=== PATIENT | female | born 1960 | race Caucasian/White ===

== ENCOUNTER 2025-07-10 13:39 | Outpatient (AMB) | payer OTHER, SELFPAY ==
[2025-07-10 14:06] VITALS: BMI 26.3
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
--- OUTSIDE RECORDS SUMMARY | 2025-07-10 14:07 | XMS_ITS | Encounter Summary ---
Author Organization [facility] Address [address] [facility] [address] [place] [address] Phone Care Team Providers Care Business Information Analyst Name Role Phone Dimitris Lipscomb MD Unavailable Irena Ernst PA-C Unavailable Makeda Xavier MD Unavailable Ruby Carter MD Unavailable Gutierrez Patterson MD Unavailable Ruby Carter MD Primary Care Provider Kimberley Nicholson MD Primary Care Provider [phone] Arnol Blair DO Primary Care Provider Encounter Details Date Type Department Care Team (Late st Contact Info) Description 11/01/2018 Ancillary Orders Virtual Department [address] [place] [address] Barbara Alatorre, AMPARO [address] [place] [address] Left knee pain, unspecified chronicity Social History Tobacco Use Types Packs/Day Years Used Date Smoking Tobacco: Never Assessed Comments Unknown Sex and Gender Information Value Date Recorded Sex Assigned at Not on file Legal Sex Female 9:47 PM EDT Gender Identity Not on file Sexual Orientation Not on file documented as of this encounter Plan of Treatment Not on file documented as of this encounter Results * MRI KNEE WITHOUT CONTRAST (LEFT) (11/10/2018 8:17 AM EST) Anatomical Region Laterality Modality Knee Left Magnetic Resonan ce 11/10/2018 10:1 8 AM EST Impressions 11/10/2018 10:27 AM EST Mild medial tibial plateau central compression deformity with underlying marrow edema. Clinical and radiographic correlation recommended. Medial meniscal tear. Probable grade 2 MCL sprain. Medial soft tissue edema which could be post-traumatic or possibly related to popliteal cyst rupture. Small joint effusion. POS - [id number] Narrative 11/10/2018 10:27 AM EST TECHNIQUE: Exam performed on a 1.5 Riddhi high-field MRI scanner. Axial proton density with fat suppression, coronal proton density with fat suppression, sagittal T1, oblique sagittal proton density and proton density with fat suppression parallel to the plane of the ACL sequences were obtained. FINDINGS: Comparison is made with the prior radiographic study obtained at [facility] dated 01/08/2015. There is ill-defined linear opacity in the medial meniscus which appears to approximate the inferior articular surface near the apex of the posterior horn, suggesting tear. No displaced meniscal fragment identified. Lateral meniscus is intact. Cruciate ligaments and lateral collateral ligamentous complex are intact. There appears to be partial tearing of the medial collateral ligament which is undermined by fluid and is not completely disrupted. The popliteus, infrapatellar, and visualized portions of the distal quadriceps tendons are intact. A small joint effusion is present. There is a small popliteal cyst with adjacent fluid tracking in the soft tissues along the medial head of the gastrocnemius, raising the possibility of cyst rupture. There is prominent marrow edema within the medial tibial metaphysis with a probable mild compression deformity of the central plateau. No loose osteochondral fragment identified. Minimal marrow edema in the tibial spine near the ACL insertion point. Procedure Note Mecca Hernandez MD - 11/10/2018 TECHNIQUE: Exam performed on a 1.5 Riddhi high-field MRI scanner. Axialproton density with fat suppression, coronal proton density with fatsuppression, sagittal T1, oblique sagittal proton density and protondensity with fat suppression parallel to the plane of the ACL sequenceswere obtained. FINDINGS: Comparison is made with the prior radiographic study obtained at [facility] dated 01/08/2015. There is ill-defined linear opacity in the medial meniscus which appearsto approximate the inferior articular surface near the apex of theposterior horn, suggesting tear. No displaced meniscal fragmentidentified. Lateral meniscus is intact. Cruciate ligaments and lateral collateral ligamentous complex are intact.There appears to be partial tearing of the medial collateral ligamentwhich is undermined by fluid and is not completely disrupted. Thepopliteus, infrapatellar, and visualized portions of the distal quadricepstendons are intact. A small joint effusion is present. There is a small popliteal cyst withadjacent fluid tracking in the soft tissues along the medial head of thegastrocnemius, raising the possibility of cyst rupture. There isprominent marrow edema within the medial tibial metaphysis with a probablemild compression deformity of the central plateau. No loose osteochondralfragment identified. Minimal marrow edema in the tibial spine near theACL insertion point. IMPRESSION: Mild medial tibial plateau central compression deformity with underlyingmarrow edema. Clinical and radiographic correlation recommended. Medialmeniscal tear. Probable grade 2 MCL sprain. Medial soft tissue edemawhich could be post-traumatic or possibly related to popliteal cystrupture. Small joint effusion. POS - [id number] Barbara Alatorre FERTILIZER SUPERVISOR IMG MR EXTREMITY Final Re sult documented in this encounter Visit Diagnoses Diagnosis Left knee pain, unspecified chronicity Left knee pain, unspecified chronicity documented in this encounter Care Teams Business Information Analyst Relationship Specialty Start Date End Date Ruby Carter MD [address] [place] [address], [address] [place] [phone] [email or web address] PCP - General 11/08/17 05/21/19 Kimberley Nicholson MD [facility] [place] [address] [email or web address] PCP - General Family Medicine 05/22/19 05/09/23 Arnol Blair DO [address] [facility] [address] [place] [address] PCP - General Family Medicine 05/10/23 Dimitris Lipscomb MD [address] [facility], 2nd [place] [address] [email or web address] Historical LMR Provider 08/22/17 11/12/21 Irena Ernst PA-C [address] [place] [address] Orthopedics [facility] Medicine, [place] [address] [email or web address] Historical LMR Provider 08/22/17 11/12/21 Makeda Xavier MD [address] [place] [address] Orthopedics & Sports [facility], [place] [address] [email or web address] Historical LMR Provider 08/22/17 Ruby Carter MD [address] [facility] [address] [place] [address] [email or web address] Historical LMR Provider 08/22/17 2 Gutierrez Patterson MD [address] [place] [address] Historical LMR Provider 08/22/17 2 documented as of this encounter Additional Source Comments The information contained in this document represents components of the legal health record. It is not the complete legal health record.[facility]
--- OUTSIDE RECORDS SUMMARY | 2025-07-10 14:07 | XMS_ITS | Encounter Summary ---
Author Organization [facility] Address [address] [facility] [address] [place] [address] Phone Care Team Providers Care Precision Printing Worker Name Role Phone Kimberley Nicholson MD Primary Care Provider [phone] Arnol Blair DO Primary Care Provider [phone] Reason for Referral * MRI/CAT Scan - Closed Specialty Diagnoses / Procedures Referred By Ani harmon Referred To Contact Radiology Diagnoses Weakness Procedures MRI Thoracic Spine CHG MRI, DORSAL SPINE CHG MRI, DORSAL SPINE COMBO Yan Ren DO Phone: tel: fax: [email or web address] Referral ID Status Reason Start Date Expiration Date Visits Re quested Visits Authorized [id number] Closed 04/26/2022 06/25/2022 1 1 Encounter Details Date Type Department Care Team (Latest Contact Info) Description 04/10/2022 Transcribe Orders Virtual Department [address] [place] [address] Yan Ren DO [address] [place] [address] [email or web address] (Primary Dx) Social History Tobacco Use Types Packs/Day Years Used Date Smoking Tobacco: Never Smokeless Tobacco: Never Alcohol Use Standard Drinks/Week Comments Not Currently 0 (1 standard drink = 0.6 oz pur e alcohol) Comments Unknown Sex and Gender Information Value Date Recorded Sex Assigned at Not on file Legal Sex Female 9:47 PM EDT Gender Identity Not on file Sexual Orientation Not on file documented as of this encounter Plan of Treatment Not on file documented as of this encounter Results * MRI THORACIC SPINE (NEURO) WITH AND WITHOUT CONTRAST (05/01/2022 2:11 PM EDT) Anatomical Region Laterality Modality T-spine Magnetic Resonan ce 05/02/2022 12:1 3 PM EDT Impressions 05/02/2022 12:35 PM EDT 1.Small lower thoracic spinal cord syrinx extending from T10-11 to T12-L1, without evidence of obstructive etiology. 2.Degenerative changes of the spine without high-grade neural foraminal or spinal stenosis. Narrative 05/02/2022 12:35 PM EDT MRI THORACIC SPINE (NEURO) WITH AND WITHOUT CONTRAST TECHNIQUE: Multi-sequence, multi-planar MRI of the thoracic spine was performed with and without intravenous contrast. COMPARISON: None. FINDINGS: THORACIC SPINE: Alignment and Vertebrae: Normal alignment. No compression fracture. Marrow: Circumscribed focus of T1 hyperintensity within T11 representing a benign hemangioma. L1 superior endplate deformity. Discs and Endplates: Multilevel mild height loss with associated endplate irregularity/Schmorl's node formation. Multilevel posterior disc abnormalities representing small central protrusions and bulges, most prominently at T2-3 and T6-7 variably partially effacing the ventral CSF space, along with multilevel ligamentum flavum thickening. Resultant mild spinal canal stenosis at the T10-11 level with otherwise no significant spinal canal stenosis. No neural foraminal stenosis. Spinal Cord: No spinal cord compression or signal abnormality. Dilatation of the central canal measuring up to 3.6 mm in greatest diameter, extending cranially from the T10-11 level and caudally to the T12-L1 level. Contrast: No abnormal enhancement. Soft Tissue: No prevertebral edema. Other Findings: None. Procedure Note José Miguel Adam MD - 05/02/2022 MRI THORACIC SPINE (NEURO) WITH AND WITHOUT CONTRAST TECHNIQUE: Multi-sequence, multi-planar MRI of the thoracic spine was performed withand without intravenous contrast. COMPARISON: None. FINDINGS: THORACIC SPINE: Alignment and Vertebrae: Normal alignment. No compression fracture. Marrow: Circumscribed focus of T1 hyperintensity within T11 representing abenign hemangioma. L1 superior endplate deformity. Discs and Endplates: Multilevel mild height loss with associated endplateirregularity/Schmorl's node formation. Multilevel posterior discabnormalities representing small central protrusions and bulges, mostprominently at T2-3 and T6-7 variably partially effacing the ventral CSFspace, along with multilevel ligamentum flavum thickening. Resultant mildspinal canal stenosis at the T10-11 level with otherwise no significantspinal canal stenosis. No neural foraminal stenosis. Spinal Cord: No spinal cord compression or signal abnormality. Dilatationof the central canal measuring up to 3.6 mm in greatest diameter,extending cranially from the T10-11 level and caudally to the [id number]. Contrast: No abnormal enhancement. Soft Tissue: No prevertebral edema. Other Findings: None. IMPRESSION: 1.Small lower thoracic spinal cord syrinx extending from T10-11 to T12- L1,without evidence of obstructive etiology. 2.Degenerative changes of the spine without high-grade neural foraminal orspinal stenosis. Yan Ren DO IMG MR XSPECIALTY Final Resu lt documented in this encounter Visit Diagnoses Diagnosis Weakness- Primary Other malaise and fatigue Weakness Other malaise and fatigue documented in this encounter Care Teams Precision Printing Worker Relationship Specialty Start Date End Date Kimberley Nicholson MD [address] [place] [address] [email or web address] PCP - General Family Medicine 05/22/19 Arnol Blair DO [address] [address] PCP - General Family Medicine 05/10/23 documented as of this encounter Additional Source Comments The information contained in this document represents components of the legal health record. It is not the complete legal health record.[facility]
--- OUTSIDE RECORDS SUMMARY | 2025-07-10 14:07 | XMS_ITS | Encounter Summary ---
Author Organization [facility] Address [address] [facility] [address] [place] [address] Phone Care Team Providers Care Acoustical Material Worker Name Role Phone Kimberley Nicholson MD Primary Care Provider [phone] Arnol Blair DO Primary Care Provider [phone] Encounter Details Date Type Department Care Team ([facility] st Contact Info) Description 04/10/2022 Procedure Pass [facility], [address] [address] Social History Tobacco Use Types Packs/Day Years [...] on file documented as of this encounter Visit Diagnoses Not on filedocumented in this encounter Care Teams Acoustical Material Worker Relationship Specialty Start Date End Date Kimberley Nicholson MD [address] [place] [address] [email or web address] PCP - General Family Medicine 05/22/19 Arnol Blair DO [address] [id number] PCP - General Family Medicine 05/10/23 documented as of this encounter Additional Source Comments The information contained in this document represents components of the legal health record. It is not the complete legal health record.[facility]
--- OUTSIDE RECORDS SUMMARY | 2025-07-10 14:07 | XMS_ITS | Encounter Summary ---
Author Organization [facility] Address [address] [facility] [address] [place] [address] Phone Care Team Providers Care Yard Crane Operator Name Role Phone Dimitris Lipscomb MD Unavailable [phone] Irena Ernst PA-C Unavailable Makeda Xavier MD Unavailable [phone] Ruby Carter MD Unavailable Gutierrez Patterson MD Unavailable [phone] Kimberley Nicholson MD Primary Care Provider [phone] Arnol Blair DO Primary Care Provider [phone] Encounter Details Date Type Department Care Team (Late st Contact Info) Description 06/04/2019 Procedure Pass [facility] Admitting Dept Virtual Department [address] [place] [phone] Social History Tobacco Use Types Packs/Day Years [...] on filedocumented in this encounter Care Teams Yard Crane Operator Relationship Specialty Start Date End Date Kimberley Nicholson MD [address] [place] [address] [email or web address] PCP - General Family Medicine 05/22/19 05/09/23 Arnol Blair DO [address] [facility] [address] [place] [address] PCP - General Family Medicine 05/10/23 Dimitris Lipscomb MD [address] [facility], [address] [place] [address] [email or web address] Historical LMR Provider 08/22/17 11/12/21 Irena Ernst PA-C [address] [facility] Orthoped[facility] & [facility], [place] [address] [email or web address] Historical LMR Provider 08/22/17 11/12/21 Makeda Xavier MD 4 [facility] Orth[facility], [place] [address] [email or web address] Historical LMR Provider 08/22/17 Ruby Carter MD 38 [facility] [address] [place] [phone] [email or web address] Historical LMR Provider 08/22/17 2 Gutierrez Patterson MD [address] [place] [address] Historical LMR Provider 08/22/17 2 documented as of this encounter Additional Source Comments The information contained in this document represents components of the legal health record. It is not the complete legal health record.[facility]
--- OUTSIDE RECORDS SUMMARY | 2025-07-10 14:07 | XMS_ITS | Encounter Summary ---
Author Organization [facility] Address [address] [facility] [address] [place] [address] Phone Care Team Providers Care Drum Printer Name Role Phone Dimitris Lipscomb MD Unavailable [phone] Irena Ernst PA-C Unavailable [phone] Makeda Xavier MD Unavailable Ruby Carter MD Unavailable Gutierrez Patterson MD Unavailable Ruby Carter MD Primary Care Provider [phone] Kimberley Nicholson MD Primary Care Provider [phone] Arnol Blair DO Primary Care Provider Encounter Details Date Type Department Care Team (Late st Contact Info) Description 11/01/2018 Procedure Pass [facility], [address] [address] Social History Tobacco Use Types Packs/Day Years Used Date Smoking Tobacco: Never Assessed Comments Unknown Sex and Gender Information Value Date Recorded Sex Assigned at Not on file Legal Sex Female 9:47 PM EDT Gender Identity Not on file Sexual Orientation Not on file documented as of this encounter Last Filed Vital Signs Vital Sign Reading Time Taken Comments Blood Pressure - - Pulse - - Temperature - - Respiratory Rate - - Oxygen Saturation - - Inhaled Oxygen Concentration - - Weight 102.1 kg (225 lb) 11/03/2018 11:14 AM EST Height 162.6 cm (5' 4 ) 11/03/2018 11:14 AM EST Body Mass Index 38.62 11/03/2018 11:14 AM EST documented in this encounter Plan of Treatment Not on file documented as of this encounter Visit Diagnoses Not on filedocumented in this encounter Care Teams Drum Printer Relationship Specialty Start Date End Date Ruby Carter MD [address] [facility], [address] [place] [address] [email or web address] PCP - General 11/08/17 05/21/19 Kimberley Nicholson MD [address] [place] [address] [email or web address] PCP - General Family Medicine 05/22/19 05/09/23 Arnol Blair DO [address] [address] PCP - General Family Medicine 05/10/23 Dimitris Lipscomb MD 22 [facility], [address] [place] [address] [email or web address] Historical LMR Provider 08/22/17 11/12/21 Irena Ernst PA-C 4 [facility], [facility] [place] [address] Historical LMR Provider 08/22/17 11/12/21 Makeda Xavier MD [address] [place] [address] [facility] [place] [address] Historical LMR Provider 08/22/17 Ruby Carter MD [address] [facility], [address] [place] [address] [email or web address] Historical LMR Provider 08/22/17 2 Gutierrez Patterson MD [address] [place] [address] Historical LMR Provider 08/22/17 2 documented as of this encounter Additional Source Comments The information contained in this document represents components of the legal health record. It is not the complete legal health record.[facility]
--- OUTSIDE RECORDS SUMMARY | 2025-07-10 14:07 | XMS_ITS | Clinical Summary ---
Author Organization [email or web address] [facility] Address [address] [place] [address] Care Team Providers Care Rn Mds Coordinator Name Role Phone Unknown, Primary Care Provider Unavailabl e Social History Tobacco Use Types Packs/Day Years Used Date Smoking Tobacco: Never Assessed Sex and Gender Information Value Date Recorded Sex Assigned at Not on file Gender Identity Not on file Sexual Orientation Not on file Job Start Date Occupation Industry Not on file Not on file Not on file Plan of Treatment Health Maintenance Due Date Last Done Comments Hepatitis C Screening 1960 COVID-19 Vaccine (#1) 01/18/1962 Depression Screening 1973 Preventative Health Evaluation 1979 DTap / Tdap / Td (1 - Tdap) 1980 Cervical Cancer Screening (P ap Smear) 1982 Colon Cancer Screening (Colonoscopy) 2006 Breast Cancer Screening (Mammogram) 2011 Shingrix-Zoster Vaccine (1 of 2) 2011 Influenza Vaccine (#1) 2025 RSV Adult > 60+ Yrs or Pregn ant (1 - 1-dose 75+ series) 2036 Hepatitis B Vaccines Aged Out No long er eligible based on patient's age to complete this topic Pneumococcal Vaccine Aged Out No long er eligible based on patient's age to complete this topic RSV Ped < 20 months Aged Out No longe r eligible based on patient's age to complete this topic Care Teams Rn Mds Coordinator Relationship Specialty Start Date End Date Unknown, PCP - General 05/18/23
--- OUTSIDE RECORDS SUMMARY | 2025-07-10 14:09 | XMS_ITS | Encounter Summary ---
Author Organization [facility] Address [address] [facility] [address] [place] [address] Phone Care Team Providers Care Director Sales And Trade Marketing Name Role Phone Dimitris Lipscomb MD Unavailable Irena Ernst PA-C Unavailable Makeda Xavier MD Unavailable Ruby Carter MD Unavailable Gutierrez Patterson MD Unavailable Ruby Carter MD Primary Care Provider Kimberley Nicholson MD Primary Care Provider [phone] Arnol Blair DO Primary Care Provider Reason for Referral * Physical Therapy (Routine) - Closed Specialty Diagnoses / Procedures Referred By Ani harmon Referred To Contact Physical Therapy Diagnoses Encounter for rehabilitation System, Provider Not In, [facility] [id number] [place] [address] Phone: tel: Referral ID Status Reason Start Date Expiration Date Visits Re quested Visits Authorized [id number] Closed 07/01/2018 07/01/2019 10 10 Encounter Details Date Type Department Care Team (Latest Contact Info) Description 07/03/2018 Transcribe Orders [facility] [address] [place] [address] Ruby Carter MD 38 [facility] [address] [place] [phone] [email or web address] Encounter for rehabilitation (Primary Dx) Social History Tobacco Use Types Packs/Day Years Used Date Smoking Tobacco: Never Assessed Comments Unknown Sex and Gender Information Value Date Recorded Sex Assigned at Not on file Legal Sex Female 9:47 PM EDT Gender Identity Not on file Sexual Orientation Not on file documented as of this encounter Plan of Treatment Scheduled Referrals Name Type Priority Associated Diagnoses Orde r Schedule Ambulatory referral to [facility] Physical Therapy Outpatient Referral Routine Encounter for rehabilitation Ordered: 07/03/2018 documented as of this encounter Visit Diagnoses Diagnosis Encounter for rehabilitation- Primary documented in this encounter Care Teams Director Sales And Trade Marketing Relationship Specialty Start Date End Date Ruby Carter MD [address] [facility] [address] [place] [phone] [email or web address] PCP - General 11/08/17 05/21/19 [facility] [place] [address] [email or web address] PCP - General Family Medicine 05/22/19 05/09/23 Arnol Blair DO [address] [address] PCP - General Family Medicine 05/10/23 Dimitris Lipscomb MD [address] [place] [address], [address] [place] [address] [email or web address] Historical LMR Provider 08/22/17 11/12/21 Irena Ernst PA-C 4 [facility] [place] [address] [email or web address] Historical LMR Provider 08/22/17 11/12/21 Makeda Xavier MD 4 [facility], [place] [address] [email or web address] Historical LMR Provider 08/22/17 Ruby Carter MD [address] [place] [address] [address] [place] [address] [email or web address] Historical LMR Provider 08/22/17 2 Gutierrez Patterson MD [address] [place] [address] Historical LMR Provider 08/22/17 2 documented as of this encounter Additional Source Comments The information contained in this document represents components of the legal health record. It is not the complete legal health record.[facility]
--- OUTSIDE RECORDS SUMMARY | 2025-07-10 14:09 | XMS_ITS | Encounter Summary ---
Author Organization [facility] Address [address] [facility] [address] [place] [address] Phone Care Team Providers Care Gang Ripsaw Operator Name Role Phone Kimberley Nicholson MD Primary Care Provider [phone] Arnol Blair DO Primary Care Provider [phone] Reason for Referral * MRI/CAT Scan - Closed Specialty Diagnoses / Procedures Referred By Ani harmon Referred To Contact Radiology Diagnoses Lumbar radiculopathy Pain in the coccyx Procedures MRI Lumbar Spine CHG MRI, LUMBAR SPINE aYn Ren DO Phone: tel: fax: [email or web address] Referral ID Status Reason Start Date Expiration Date Visits Re quested Visits Authorized [id number] Closed 03/06/2022 09/02/2022 1 1 Encounter Details Date Type Department Care Team (Latest Contact Info) Description 03/14/2022 Transcribe Orders Virtual Department [address] [place], [place] [phone] Kimberley Nicholson MD [address] [place], [place] [phone] [email or web address] Lumbar radiculopathy (Primary Dx); Pain in the coccyx Social History Tobacco Use Types Packs/Day Years [...] as of this encounter Results * MRI LUMBAR SPINE (NEURO) WITHOUT CONTRAST (03/28/2022 6:41 PM EDT) Anatomical Region Laterality Modality L-spine Magnetic Resonan ce 03/28/2022 6:44 PM EDT Impressions 03/28/2022 6:54 PM EDT Multilevel facet and disc degenerative changes, notable for severe foraminal narrowing on the right at L5-S1, and for severe canal stenosis at L4-L5 and L5- S1. Prominence of the central canal of the visualized with spinal cord, additional imaging recommended for further evaluation. T2 hypointense focus in the upper pole of the right kidney, additional imaging recommended for further characterization. RECOMMENDATION: -Consider CT kidneys. -Consider MRI of the thoracic spine to evaluate spinal cord. Narrative 03/28/2022 6:54 PM EDT MRI LUMBAR SPINE (NEURO) WITHOUT CONTRAST TECHNIQUE: Multi-sequence, multi-planar MRI of the lumbar spine was performed without intravenous contrast. COMPARISON: None FINDINGS: LUMBAR SPINE: Alignment and Vertebrae: Dextroconvex curvature. Slight retrolisthesis at L4-L5. No acute fracture. Marrow: No concerning bone marrow replacing lesion. Hemangioma in the vertebral body of T11. Discs and Endplates: Multilevel T2 signal loss of the intervertebral discs with disc height loss at L3-L4, L4-L5 and L5-S1. Schmorl's nodes in the superior and inferior endplates of L1. Conus: Terminates at the level of L1. The visualized spinal cord demonstrates prominence of the central canal. Soft Tissues: Normal. Other Findings: Approximately 1.6 cm T2 hypointense focus along the upper pole of the right kidney (5:3). Findings by level: T12-L1: Small concentric disc bulge. No spinal or foraminal stenosis. L1-L2: Bilateral facet arthropathy. Concentric disc bulge. Mild canal stenosis. No foraminal stenosis. L2-L3: Bilateral facet arthropathy. Concentric disc bulge. Mild canal stenosis. No foraminal stenosis. L3-L4: Bilateral facet arthropathy. Concentric disc bulge. Mild canal stenosis. Mild left foraminal stenosis. L4-L5: Bilateral facet arthropathy. Ligamentum flavum thickening. Concentric disc bulge. Severe canal stenosis. Mild right and moderate left foraminal stenosis. L5-S1: Bilateral facet arthropathy. Ligamentum flavum thickening. Concentric disc bulge. Severe canal stenosis. Severe right and moderate left foraminal stenosis. Procedure Note Kris Rubio MD - 03/28/2022 MRI LUMBAR SPINE (NEURO) WITHOUT CONTRAST TECHNIQUE: Multi-sequence, multi-planar MRI of the lumbar spine wasperformed without intravenous contrast. COMPARISON: None FINDINGS: LUMBAR SPINE: Alignment and Vertebrae: Dextroconvex curvature. Slight retrolisthesis atL4-L5. No acute fracture. Marrow: No concerning bone marrow replacing lesion. Hemangioma in thevertebral body of T11. Discs and Endplates: Multilevel T2 signal loss of the intervertebral discswith disc height loss at L3-L4, L4-L5 and L5-S1. Schmorl's nodes in thesuperior and inferior endplates of L1. Conus: Terminates at the level of L1. The visualized spinal corddemonstrates prominence of the central canal. Soft Tissues: Normal. Other Findings: Approximately 1.6 cm T2 hypointense focus along the upperpole of the right kidney (5:3). Findings by level: T12-L1: Small concentric disc bulge. No spinal or foraminal stenosis. L1-L2: Bilateral facet arthropathy. Concentric disc bulge. Mild canalstenosis. No foraminal stenosis. L2-L3: Bilateral facet arthropathy. Concentric disc bulge. Mild canalstenosis. No foraminal stenosis. L3-L4: Bilateral facet arthropathy. Concentric disc bulge. Mild canalstenosis. Mild left foraminal stenosis. L4-L5: Bilateral facet arthropathy. Ligamentum flavum thickening.Concentric disc bulge. Severe canal stenosis. Mild right and moderate leftforaminal stenosis. L5-S1: Bilateral facet arthropathy. Ligamentum flavum thickening.Concentric disc bulge. Severe canal stenosis. Severe right and moderateleft foraminal stenosis. IMPRESSION: Multilevel facet and disc degenerative changes, notable for severeforaminal narrowing on the right at L5-S1, and for severe canal stenosisat L4-L5 and L5-S1. Prominence of the central canal of the visualized with spinal cord,additional imaging recommended for further evaluation. T2 hypointense focus in the upper pole of the right kidney, additionalimaging recommended for further characterization. RECOMMENDATION: -Consider CT kidneys. -Consider MRI of the thoracic spine to evaluate spinal cord. Yan Ren DO IMG MR XSPECIALTY Final Resu lt documented in this encounter Visit Diagnoses Diagnosis Lumbar radiculopathy- Primary Thoracic or lumbosacral neuritis or radiculitis, unspecified Pain in the coccyx Other disorder of coccyx Lumbar radiculopathy Thoracic or lumbosacral neuritis or radiculitis, unspecified Pain in the coccyx Other disorder of coccyx documented in this encounter Care Teams Gang Ripsaw Operator Relationship Specialty Start Date End Date Kimberley Nicholson MD [address] [place] [address] [email or web address] PCP - General Family Medicine 05/22/19 Arnol Blair DO [address] [address] PCP - General Family Medicine 05/10/23 documented as of this encounter Additional Source Comments The information contained in this document represents components of the legal health record. It is not the complete legal health record.[facility]
--- OUTSIDE RECORDS SUMMARY | 2025-07-10 14:09 | XMS_ITS | Clinical Summary ---
Author Organization [facility] Address [address] [facility] [address] [place] [address] Phone Care Team Providers Care Tower Equipment Repairer Name Role Phone Arnol Blair DO Primary Care Provider Allergies Active Allergy Reactions Criticality Noted Date Comments Miconazole 02/09/2022 Penicillins Other (See Comments) Medium 05/21/2019 Abdominal cramping Pollen Extracts Sneezing Medium 05/21/2019 Asthma like symptoms Mxjcesd-Miz-Rja Reductase Inhibitors 05/15/2023 Joint pain Sulfamethoxazole Unknown 02/14/2017 Medications ALBUTEROL SULFATE (PROAIR HFA INHL) 1 puff as needed. Active LAMOTRIGINE (LAMICTAL ORAL) 200 mg daily. Active Medication-Free Text Keppra 3000 mg Tablet, Si tablet Orally daily Active METHYLPHENIDATE HCL (CONCERTA ORAL) 36 mg daily. Active fluticasone propionate (FLOVENT HFA) 110 mcg/actuation inhalerIndicati ons:maintenance therapy for asthma Inhale 2 puffs into the lungs 2 (two) times a day. Indications: Controller Medication for Asthma Active clonazePAM (KLONOPIN) 1 MG tabletIndicatio ns:@ BT Take 1 mg by mouth daily. Indications: @ BT Active diclofenac sodium (VOLTAREN) 50 MG EC tablet TAKE ONE TABLET BY MOUTH THREE TIMES A DAY NEEDED 2 Active gabapentin (NEURONTIN) 600 MG tablet TAKE TWO TABLETS BY MOUTH EVERY DAY AT BEDTIME 2 Active levETIRAcetam (KEPPRA) 500 MG tablet TAKE THREE TABLETS BY MOUTH EVERY DAY AT BEDTIME 2 Active tiZANidine (ZANAFLEX) 2 MG tablet TAKE 1 TABLTE BY MOUTH THREE TIMES A DAY NEEDED 2 Active valACYclovir (VALTREX) 500 MG tablet TAKE ONE TABLET BY MOUTH TWICE A DAY FOR 3 DAYS NEEDED (START AT FIRST SIGN OF NEEDING) 2 Active VIIBRYD 40 mg Tab Take 40 mg by mouth daily. 2 Active acetaminophen (TYLENOL) 500 MG tablet Take 500 mg by mouth every 6 (six) hours as needed for pain (specific location in comments). Active levothyroxine (EUTHYROX) 50 MCG tablet Take by mouth. 2 Active Active Problems Problem Noted Date Diagnosed Date Primary osteoarthritis of left knee 02/09/2022 Status post right knee replacement 02/09/2022 Family History Medical History Relation Comments CV disease Father 2 CV disease Mother 2 Relation Status Comments Father 1 Father 2 Mother 1 Mother 2 Social History Tobacco Use Types Packs/Day Years Used Date Smoking Tobacco: Never Smokeless Tobacco: Never Tobacco Cessation:Counseling Given: Not Answered Alcohol Use Standard Drinks/Week Comments Not Currently 0 (1 standard drink = 0.6 oz pur e alcohol) Education Answer Date Recorded Are you interested in more education? Not on eve e 03/02/2023 Are you concerned about learning? Not on file 03/02/2023 No 03/02/2023 No 03/02/2023 Digital Access Answer Date Recorded No 03/31/2023 No 03/31/2023 Reliable internet access at home? Not on file 03/31/2023 Device with a working camera? Not on file Comments Unknown Sex and Gender Information Value Date Recorded Sex Assigned at Not on file Legal Sex Female 9:47 PM EDT Gender Identity Not on file Sexual Orientation Not on file Last Filed Vital Signs Vital Sign Reading Time Taken Comments Blood Pressure 118/60 06/04/2019 8:44 AM EDT Pulse 81 06/04/2019 7:29 AM EDT Temperature 36 C (96.8 F) 06/04/2019 7:29 AM EDT Respiratory Rate 18 06/04/2019 8:44 AM EDT Oxygen Saturation 96% 06/04/2019 8:44 AM EDT Inhaled Oxygen Concentration - - Weight 90.7 kg (200 lb) 05/15/2023 1:31 PM EDT Height 162.6 cm (5' 4 ) 05/15/2023 1:31 PM EDT Body Mass Index 34.33 05/15/2023 1:31 PM EDT Plan of Treatment Health Maintenance Due Date Last Done Comments LIPID PANEL 1961 TSH LEVEL 1961 DEPRESSION SCREENING 1973 HEPATITIS C SCREENING 1979 HIV ONE-TIME SCREENING (18-65 YEARS) 1979 PAP SMEAR 1982 SCREENING FOR DIABETES 1996 MAMMOGRAM 2001 COLOGUARD 2006 FIT TEST 2006 FOBT 2006 SIGMOIDOSCOPY 2006 VIRTUAL COLONOSCOPY 2006 PNEUMOCOCCAL VACCINES (50+ years) (3 of 3 - PCV20 or PCV21) 06/18/2024 06/18/2019, 09/20/2015 INFLUENZA VACCINE (#1) 2025 , 08/27/2020, 08/13/2019, Additional history exists COVID-19 VACCINE ( season) 2025 09/16/2021, 12/22/2020, 12/01/2020 COLONOSCOPY 06/04/2029 06/04/2019 COLORECTAL CANCER SCREENING 06/04/2029 Adult Td,Tdap Booster 12/07/2032 12/07/2022 , 09/10/2012, 07/30/2003 RSV VACCINE (1 - 1-dose 75+ series) 2036 ZOSTER VACCINES Completed 04/12/2022, 12/29/2021 SMOKING STATUS SCREENING (Once After 26 Yrs) Completed 05/15/2023 HEPATITIS A VACCINES Aged Out No long er eligible based on patient's age to complete this topic HIB VACCINES Aged Out No longer eligi ble based on patient's age to complete this topic MENINGOCOCCAL VACCINES (ACWY) Aged Out No longer eligible based on patient's age to complete this topic MENINGOCOCCAL VACCINES (B) Aged Out N o longer eligible based on patient's age to complete this topic Medical Devices Implanted Type Area Boiler Testing Technician Device Identifier Shelf Expiration Date Model / Serial / Lot Right Knee Procedures Procedure Name Priority Date/Time Associated Diagnosis Comments ENDOSCOPY, COLON 06/04/2019 7:32 AM EDT from Last 3 Months or Most Recently Relevant to Health Maintenance Results * ENDOSCOPY, COLON (06/04/2019 7:32 AM EDT) Narrative Transcriptions Mecca Hernandez MD - 06/04/2019 7:32 AM EDT Patient Name: Barbara Edward Attending MD:: MECCA HERNANDEZ MD Procedure Date: 06/04/2019 7:32 AM Date of : 1960 Age: 58 Admit Type: Outpatient Gender: Female Room: [place] [address] Referring MD: Kimberley Nicholson Exam Type: Colonoscopy Indications: Screening for colorectal malignant neoplasm, Last colonoscopy: January 2008 Medications: Propofol per Anesthesia Procedure: Informed consent was obtained from the patient after discussion of the indications, limitations,alternatives, benefits, and risks of the procedure. Risksspecifically discussed include but are not limited to medication reactions, missed lesions, bleeding, perforation, orthe need for emergent surgery. Throughout the procedure, the patient's blood pressure, pulse, end-tidal CO2, and oxygen saturations were monitored continuously. The Olympus adult variable colonoscope [id number] #1 was introduced through the anus and advanced to theterminal ileum, with identification of the appendiceal orificeand IC valve. The terminal ileum, ileocecal valve,appendiceal orifice, and rectum were photographed. The colonoscopywas performed without difficulty. The patient tolerated the procedure well. The quality of the bowel preparationwas good. The bowel preparation used was GoLYTELY. Complications: No immediate complications. Estimated blood loss:None. Findings: The digital rectal exam was normal. Pertinent negatives include no palpable rectal lesions. External hemorrhoids were found during perianal exam.The hemorrhoids were small. The retroflexed view of the distal rectum and analverge was normal and showed no anal or rectalabnormalities. Many small-mouthed diverticula were found in thesigmoid colon. The exam was otherwise without abnormality. The terminal ileum appeared normal. Retroflexion in the right colon was performed. Impression: - External hemorrhoids. - The distal rectum and anal verge are normal on retroflexion view. - Diverticulosis in the sigmoid colon. - The examination was otherwise normal. - The examined portion of the ileum was normal. - No specimens collected. Recommendation: - Repeat colonoscopy in 10 years for screeningpurposes. - Return to nurse practitioner. - High fiber diet. MECCA HERNANDEZ MD 06/04/2019 8:33:02 AM This report has been signed electronically. Number of Addenda: 0 Note Initiated On: 06/04/2019 7:32 AM Procedure Code(s): --- Professional --- 30402, Colonoscopy, flexible; diagnostic, including collection of specimen(s) by brushing or washing, when performed (separateprocedure) --- Technical --- 95461, Colonoscopy, flexible; diagnostic, including collection of specimen(s) by brushing or washing, when performed (separateprocedure) Diagnosis Code(s): --- Professional --- Z12.11, Encounter for screening for malignant neoplasm of colon K64.4, Residual hemorrhoidal skin tags K57.30, Diverticulosis of large intestine without perforation orabscess without bleeding --- Technical --- Z12.11, Encounter for screening for malignant neoplasm of colon K64.4, Residual hemorrhoidal skin tags K57.30, Diverticulosis of large intestine without perforation orabscess without bleeding CPT copyright 2016 [employer]. All rights reserved. The codes documented in this report are preliminary and upon hot saw operator reviewmay be revised to meet current compliance requirements. [address] [place] [address] Kimberley Nicholson MD GI PROCEDURE ORDERABLES F inal Result from Last 3 Months or Most Recently Relevant to Health Maintenance Insurance ACO ACO Care Teams Tower Equipment Repairer Relationship Specialty Start Date End Date [facility] [address] [address] PCP - General Family Medicine 05/10/23 Additional Source Comments The information contained in this document represents components of the legal health record. It is not the complete legal health record.[facility]
--- OUTSIDE RECORDS SUMMARY | 2025-07-10 14:09 | XMS_ITS | Encounter Summary ---
Author Organization [facility] Address [address] [place] [address] Phone Care Team Providers Care Servicer Name Role Phone Kimberley Nicholson MD Primary Care Provider + [phone] Arnol Blair DO Primary Care Provider + [phone] Encounter Details Date Type Department Care Team (Late st Contact Info) Description 02/03/2022 Ancillary Orders [facility],Outside Imaging [address] [place] [address] System, Provider [place] In, [place] [address] Social History Tobacco Use Types Packs/Day Years [...] documented as of this encounter Results * XR Lower Extremity Outside (No Interpretation) (12/27/2021 12:00 AM EST) Narrative SYSTEMGENERATED, DOCUMENTATION - 02/03/2022 4:50 PM EDT This study is for PACS storage only and not for interpretation. us Provider Not In System PhD IMG OUTSIDE IMAGING W /OUT INTERPRETATION Final Result documented in this encounter Visit Diagnoses Not on filedocumented in this encounter Care Teams Servicer Relationship Specialty Start Date End Date Kimberley Nicholson MD [address] [place] [address] [email or web address] PCP - General Family Medicine 05/22/19 Arnol Blair DO [address] [address] PCP - General Family Medicine 05/10/23 documented as of this encounter Additional Source Comments The information contained in this document represents components of the legal health record. It is not the complete legal health record.[facility]
--- OUTSIDE RECORDS SUMMARY | 2025-07-10 14:09 | XMS_ITS | Encounter Summary ---
Author Organization [facility] Address [address] [facility] [address] [place] [address] Phone Care Team Providers Care Freight Car Repairer Name Role Phone Kimberley Nicholson MD Primary Care Provider + [phone] Arnol Blair DO Primary Care Provider + [phone] Encounter Details Date Type Department Care Team (Latest Contact Info) Description 03/17/2022 Transcribe Orders Virtual Department [address] [place] [address] Yan Ren, [address] [place] [address] [email or web address] Sacrococcygeal disorders, not elsewhere classified (Primary Dx) Social History Tobacco Use Types [...] as of this encounter Results * XR PELVIS 1 VIEW (05/01/2022 12:43 PM EDT) Anatomical Region Laterality Modality Pelvis Computed Radiogr aphy 05/01/2022 3:30 PM EDT Impressions 05/01/2022 3:35 PM EDT No acute osseous abnormality demonstrated radiographically on single view Narrative 05/01/2022 3:35 PM EDT XR PELVIS 1 VIEW ONLY History: Pelvic pain with radiculopathy COMPARISON: MRI lumbar spine 03/28/2022 FINDINGS: No displaced fracture. Stool and bowel gas overlie the sacrum obscuring the field of view. Degenerative changes lower lumbar spine. Intact sacroiliac joints and pubic symphysis. Frontal evaluation of the hips demonstrates normal joint spaces. Procedure Note Miri Granados MD - 05/01/2022 XR PELVIS 1 VIEW ONLY History: Pelvic pain with radiculopathy COMPARISON: MRI lumbar spine 03/28/2022 FINDINGS: No displaced fracture. Stool and bowel gas overlie the sacrum obscuringthe field of view. Degenerative changes lower lumbar spine. Intactsacroiliac joints and pubic symphysis. Frontal evaluation of the hipsdemonstrates normal joint spaces. IMPRESSION: No acute osseous abnormality demonstrated radiographically on singleview Yan Ren DO IMG XR PELVIS Final Result documented in this encounter Visit Diagnoses Diagnosis Sacrococcygeal disorders, not elsewhere classified- Primary Sacrococcygeal disorders, not elsewhere classified documented in this encounter Care Teams Freight Car Repairer Relationship Specialty Start Date End Date Kimberley Nicholson MD [address] [place] [address] [email or web address] PCP - General Family Medicine 05/22/19 Arnol Blair DO [address] [address] PCP - General Family Medicine 05/10/23 documented as of this encounter Additional Source Comments The information contained in this document represents components of the legal health record. It is not the complete legal health record.[facility]
--- OUTSIDE RECORDS SUMMARY | 2025-07-10 14:09 | XMS_ITS | Encounter Summary ---
Author Organization [facility] Address [address] [facility] [address] [place] [address] Phone Care Team Providers Care Justice Court Judge Name Role Phone Kimberley Nicholson MD Primary Care Provider [phone] Arnol Blair DO Primary Care Provider + [phone] Encounter Details Date Type Department Care Team ([facility] st Contact Info) Description 03/14/2022 Procedure Pass [facility], [address] [address] Social History Tobacco Use Types Packs/Day Years [...] on filedocumented in this encounter Care Teams Justice Court Judge Relationship Specialty Start Date End Date Kimberley Nicholson MD [address] [place] [address] [email or web address] PCP - General Family Medicine 05/22/19 Arnol Blair DO [address] [id number] PCP - General Family Medicine 05/10/23 documented as of this encounter Additional Source Comments The information contained in this document represents components of the legal health record. It is not the complete legal health record.[facility]
== END 2025-07-10 16:15 | disposition home or self-care (01) ==
LOC: HO.HNS 13:40
PROVIDERS: PCP Family Medicine; Visit Provider Physician Assistant
DX: G95.0 Syringomyelia and syringobulbia (principal); M50.30 Other cervical disc degeneration, unspecified cervical region; M51.369 Other intervertebral disc degeneration, lumbar region without mention of lumbar back pain or lower extremity pain; M41.20 Other idiopathic scoliosis, site unspecified
CPT/HCPCS: 99205

== ENCOUNTER → 2025-07-10 13:39 | Outpatient (BNVA) | payer OTHER, SELFPAY | PROVIDERS: PCP Family Medicine; Visit Provider Physician Assistant | DX: G95.0 Syringomyelia and syringobulbia (principal); M50.30 Other cervical disc degeneration, unspecified cervical region; M51.369 Other intervertebral disc degeneration, lumbar region without mention of lumbar back pain or lower extremity pain; M41.20 Other idiopathic scoliosis, site unspecified | CPT/HCPCS: 99202 ==

== ENCOUNTER 2025-09-07 15:53 | Outpatient (REF) | payer OTHER, SELFPAY ==
--- NOTE | ~2025-09-07 | XR_ITS ---
Exam: 4 view lumbar spine. INDICATION: Scoliosis. COMPARISON: None TECHNIQUE: AP, and lateral: Flexion, neutral, and extension view x-rays of the lumbar spine. FINDINGS: There are 5 nonrib-bearing lumbar segments. There is 23 degrees dextroscoliosis with a mild rotational component. There is moderate superior endplate compression fracture of L1, likely chronic. L1-2: There is mild disc space narrowing with endplate sclerosis and osteophytes. There is minimal retrolisthesis that does not change during flexion and extension. L2-3: There is mild disc space narrowing and subtle retrolisthesis that does not change with flexion and extension. L3-4: There is moderate disc space narrowing with endplate sclerosis and osteophytes. There is also facet sclerosis. L4-5: There is moderate disc space narrowing with endplate sclerosis and osteophytes. There is also facet sclerosis and osteophytes. There is no instability with flexion-extension. L5-S1: There is moderate disc space narrowing with endplate sclerosis and osteophytes. There is also facet sclerosis and osteophytes. There is no instability with flexion-extension. XR/XR lumbar spine 4V min Impression: Moderate dextroscoliosis with a mild rotational component. Moderate degenerative disc disease and facet osteoarthritis without instability during flexion and extension. Moderate superior endplate compression fracture of L1, likely chronic. Electronically signed by: Michael Toro MD 09/07/2025 04:52 PM EST
--- NOTE | ~2025-09-07 | CT_ITS ---
EXAMINATION: CT LUMBAR SPINE WITHOUT CONTRAST CLINICAL INFORMATION: Scoliosis COMPARISON: None available. TECHNIQUE: Axial CT was performed from upper T12 through the mid sacrum. No contrast. Coronal and sagittal reformatted images were generated from the original axial data set. ALARA: The examination used one or more of the following radiation dose reduction techniques: Automated exposure control, iterative reconstruction, and/or adjustment of mA and/or KV. FINDINGS: There are 5 nonrib-bearing lumbar sequence segments. There is 23 degrees dextroscoliosis. There is a moderate chronic superior endplate compression fracture of L1. T12-L1: There is mild disc space narrowing. L1-L2: There is minimal grade 1 anterolisthesis with moderate disc space narrowing. There are facet osteophytes, left greater than right. There is circumferential broad-based disc bulge. There is mild right and moderate left foraminal narrowing. L2-L3: There is mild grade 1 anterolisthesis with mild disc space narrowing and endplate osteophytes. Facet degeneration is greater on the left than the right. There is broad-based disc bulge. There is mild to moderate right and moderate left foraminal narrowing. L3-L4: There is moderate disc space narrowing with endplate irregularity and osteophytes with subtle retrolisthesis and broad-based disc bulge. There is mild left foraminal narrowing without right-sided narrowing. L4-L5: There is mild loss of disc height with vacuum phenomenon and endplate irregularity. There is facet sclerosis and osteophytes. There is circumferential broad-based disc bulge. There is moderate to severe foraminal narrowing, right greater than left. There is moderate to severe spinal stenosis. L5-S1: There is moderate loss of disc height with degenerative endplate irregularity and vacuum phenomena. There are endplate osteophytes. There is moderate facet degeneration with osteophytes and sclerosis. There is circumferential broad-based disc bulge. There is probable moderate spinal stenosis. There is moderate right and mild left foraminal narrowing. CT/CT lumbar spine wo IV con IMPRESSION: Mild to moderate dextroscoliosis. Multilevel degenerative disc disease and facet osteoarthritis. L1-L2: There moderate left foraminal narrowing. L2-L3: There is mild to moderate right and moderate left foraminal narrowing. L4-L5: There is moderate to severe foraminal narrowing, right greater than left. There is moderate to severe spinal stenosis. L5-S1: There is probable moderate spinal stenosis and moderate right foraminal narrowing. Consider MRI for better characterization. Electronically signed by: Michael Toro MD 09/07/2025 05:27 PM WEND[facility]
--- NOTE | ~2025-09-07 | XR_ITS ---
EXAM: CR Xr Scoliosis Survey TECHNIQUE: AP and lateral views of the cervical, thoracic, and lumbar spine. There was stitching of the AP and lateral views. INDICATION: Scoliosis PRIOR: None FINDINGS: Sagittal balance: Neutral: The geometric center of the C7 vertebral body projects 1.5 cm anterior to the posterior margin of the superior endplate of S1. Coronal balance: Neutral. The geometric center of C7 projected 1.7 cm right of the center of S1. Curvature: Cervical: 10 degrees convex right. Thoracic: 12 degrees convex left Midthoracic: Degrees convex right thoracolumbar junction: 10 degrees convex left Lumbar: 23 degrees convex right. There is a mild rotational component. [place] Risser Stage: 5: Completely ossified iliac crest apophysis and closed physis. XR/XR scoliosis survey IMPRESSION: Moderate scoliosis is most pronounced in the lumbar spine. There is a neutral coronal and sagittal balance. Electronically signed by: Michael Toro MD 09/07/2025 04:47 PM [facility]
--- OUTSIDE RECORDS SUMMARY | 2025-09-07 16:57 | XMS_ITS | Encounter Summary ---
Author Organization [facility] Address [address] [facility] [address] [place] [address] Phone Care Team Providers Care State Superintendent Of Schools Name Role Phone Dimitris Lipscomb MD Unavailable [phone] Irena Ernst PA-C Unavailable Makeda Xavier MD Unavailable [phone] Ruby Carter MD Unavailable Gutierrez Patterson MD Unavailable [phone] Kimberley Nicholson MD Primary Care Provider [phone] Arnol Blair DO Primary Care Provider Encounter Details Date Type Department Care Team (Late st Contact Info) Description 06/04/2019 Procedure Pass [facility] Admitting Dept Virtual Department [address] [place] [address] [phone] Social History Tobacco Use Types Packs/Day Years [...] on filedocumented in this encounter Care Teams State Superintendent Of Schools Relationship Specialty Start Date End Date Kimberley Nicholson MD [address] [place] [address] [email or web address] PCP - General Family Medicine 05/22/19 05/09/23 Arnol Blair DO [address] [facility] [address] [place] [address] PCP - General Family Medicine 05/10/23 Dimitirs Lipscomb MD 22 [facility], 2nd [place] [address] [email or web address] Historical LMR Provider 08/22/17 11/12/21 Irena Ernst PA-C 4 [facility], [place] [address] [email or web address] Historical LMR Provider 08/22/17 11/12/21 Makeda Xavier MD 4 [facility], [place] [address] [email or web address] Historical LMR Provider 08/22/17 Ruby Carter MD 38 [facility] [address] [place] [phone] [email or web address] Historical LMR Provider 08/22/17 2 Gutierrez Patterson MD [address] [place] [address] Historical LMR Provider 08/22/17 2 documented as of this encounter Additional Source Comments The information contained in this document represents components of the legal health record. It is not the complete legal health record.[facility]
--- OUTSIDE RECORDS SUMMARY | 2025-09-07 16:57 | XMS_ITS | Encounter Summary ---
Author Organization [facility] Address [address] [facility] [address] [place] [address] Phone Care Team Providers Care Lasting Floorworker Name Role Phone Dimitris Lipscomb MD Unavailable Irena Ernst PA-C Unavailable Makeda Xavier MD Unavailable Ruby Carter MD Unavailable Gutierrez Patterson MD Unavailable Ruby Carter MD Primary Care Provider Kimberley Nicholson MD Primary Care Provider [phone] Arnol Blair DO Primary Care Provider [phone] Encounter Details Date Type Department Care Team (Late st Contact Info) Description 11/01/2018 Ancillary Orders Virtual Department 30 [place] [address] Barbara Alatorre, AMPARO [address] [place] [address] Left knee pain, unspecified chronicity Social History [...] cyst rupture. Small joint effusion. POS - [id number] Narrative 11/10/2018 10:27 AM EST TECHNIQUE: Exam performed on a 1.5 Riddhi high-field MRI scanner. Axial proton density with fat suppression, coronal proton density with fat suppression, sagittal T1, oblique sagittal proton density and proton density with fat suppression parallel to the plane of the ACL sequences were obtained. FINDINGS: Comparison is made with the prior radiographic study obtained at [facility] dated 01/08/2015. There is ill-defined linear [...] with the prior radiographic study obtained at [facility] dated 01/08/2015. There is ill-defined [...] popliteal cystrupture. Small joint effusion. POS - [id number] Barbara Alatorre MOVIE STAR IMG MR EXTREMITY Final Re sult documented in this encounter Visit Diagnoses Diagnosis Left knee pain, unspecified chronicity Left knee pain, unspecified chronicity documented in this encounter Care Teams Lasting Floorworker Relationship Specialty Start Date End Date Ruby Carter MD [address] [place] [address], [address] [place] [phone] [email or web address] PCP - General 11/08/17 05/21/19 Kimberley Nicholson MD [facility] [place] [address] [email or web address] PCP - General Family Medicine 05/22/19 05/09/23 Arnol Blair DO [address] [facility] [address] [place] [address] PCP - General Family Medicine 05/10/23 Dimitris Lipscomb MD 22 [facility], 2nd [place] [address] [email or web address] Historical LMR Provider 08/22/17 11/12/21 Irena Ernst PA-C [address] [place] [address] Orthopedics & Sports Medicine, [place] [address] [email or web address] Historical LMR Provider 08/22/17 11/12/21 Makeda Xavier MD [address] [place] [address] Orthoped[facility], [place] [address] [email or web address] Historical LMR Provider 08/22/17 Ruby Carter MD 38 [facility] [address] [place] [address] [email or web address] Historical LMR Provider 08/22/17 2 Gutierrez Patterson MD [address] [place] [address] Historical LMR Provider 08/22/17 2 documented as of this encounter Additional Source Comments The information contained in this document represents components of the legal health record. It is not the complete legal health record.[facility]
--- OUTSIDE RECORDS SUMMARY | 2025-09-07 16:57 | XMS_ITS | Encounter Summary ---
Author Organization [facility] Address [address] [facility] [address] [place] [address] Phone Care Team Providers Care Tenant Relations Coordinator Name Role Phone Kimberley Nicholson MD Primary Care Provider + [phone] Arnol Blair DO Primary Care Provider [phone] Reason for Referral * MRI/CAT Scan - Closed Specialty Diagnoses / Procedures Referred By Ani harmon Referred To Contact Radiology Diagnoses Weakness Procedures MRI Thoracic Spine CHG MRI, DORSAL SPINE CHG MRI, DORSAL SPINE COMBO Yan Ren DO Phone: tel: fax: [email or web address] Referral ID Status Reason Start Date Expiration Date Visits Re quested Visits Authorized [id number] Closed 04/26/2022 06/25/2022 1 1 Encounter Details Date Type Department Care Team (Latest Contact Info) Description 04/10/2022 Transcribe Orders Virtual Department 30 [place] [address] Yan Ren DO [address] [place] [address] [email or web address] Weakness (Primary Dx) Social History Tobacco Use [...] the T10-11 level and caudally to the [id number]. Contrast: No abnormal enhancement. Soft Tissue: No [...] fatigue documented in this encounter Care Teams Tenant Relations Coordinator Relationship Specialty Start Date End Date Kimberley Nicholson MD [address] [place] [address] [email or web address] PCP - General Family Medicine 05/22/19 Arnol Blair DO [address] [address] PCP - General Family Medicine 05/10/23 documented as of this encounter Additional Source Comments The information contained in this document represents components of the legal health record. It is not the complete legal health record.[facility]
--- OUTSIDE RECORDS SUMMARY | 2025-09-07 16:57 | XMS_ITS | Encounter Summary ---
Author Organization [facility] Address [address] [facility] [address] [place] [address] Phone Care Team Providers Care Generator Operator Straight Bevel Gear Name Role Phone Kimberley Nicholson MD Primary Care Provider + [phone] Arnol Blair DO Primary Care Provider + [phone] Encounter Details Date Type Department Care Team (Latest Contact Info) Description 03/17/2022 Transcribe Orders Virtual Department 30 [place] [address] Yan Ren, DO [address] [place] [address] [email or web address] Sacrococcygeal disorders, not elsewhere classified (Primary Dx) [...] classified documented in this encounter Care Teams Generator Operator Straight Bevel Gear Relationship Specialty Start Date End Date Kimberley Nicholson MD [address] [place] [address] [email or web address] PCP - General Family Medicine 05/22/19 Arnol Blair DO [address] [address] PCP - General Family Medicine 05/10/23 documented as of this encounter Additional Source Comments The information contained in this document represents components of the legal health record. It is not the complete legal health record.[facility]
--- OUTSIDE RECORDS SUMMARY | 2025-09-07 16:57 | XMS_ITS | Encounter Summary ---
Author Organization [facility] Address [address] [facility] [address] [place] [address] Phone Care Team Providers Care Onsite Health Coach Name Role Phone Kimberley Nicholson MD Primary Care Provider [phone] Arnol Blair DO Primary Care Provider + [phone] Encounter Details Date Type Department Care Team ([facility] st Contact Info) Description 04/10/2022 Procedure Pass [facility], [address] [address] Social History Tobacco Use Types Packs/Day Years [...] on filedocumented in this encounter Care Teams Onsite Health Coach Relationship Specialty Start Date End Date Kimberley Nicholson MD [address] [place] [address] [email or web address] PCP - General Family Medicine 05/22/19 Arnol Blair DO [address] [id number] PCP - General Family Medicine 05/10/23 documented as of this encounter Additional Source Comments The information contained in this document represents components of the legal health record. It is not the complete legal health record.[facility]
--- OUTSIDE RECORDS SUMMARY | 2025-09-07 16:57 | XMS_ITS | Encounter Summary ---
Author Organization [facility] Address [address] [facility] [address] [place] [address] Phone Care Team Providers Care Jack Tamp Operator Name Role Phone Kimberley Nicholson MD Primary Care Provider + [phone] Arnol Blair DO Primary Care Provider [phone] Reason for Referral * MRI/CAT Scan - Closed Specialty Diagnoses / Procedures Referred By Ani harmon Referred To Contact Radiology Diagnoses Lumbar radiculopathy Pain in the coccyx Procedures MRI Lumbar Spine CHG MRI, LUMBAR SPINE Yan Ren DO Phone: tel: fax: [email or web address] Referral ID Status Reason Start Date Expiration Date Visits Re quested Visits Authorized [id number] Closed 03/06/2022 09/02/2022 1 1 Encounter Details Date Type Department Care Team (Latest Contact Info) Description 03/14/2022 Transcribe Orders Virtual Department 30 [place], [place] [id number] Kimberley Nicholson MD [address] [place], [place] [id number] [email or web address] Lumbar radiculopathy (Primary Dx); Pain in the [...] coccyx documented in this encounter Care Teams Jack Tamp Operator Relationship Specialty Start Date End Date Kimberley Nicholson MD [address] [place] [address] [email or web address] PCP - General Family Medicine 05/22/19 Arnol Blair DO [address] [address] PCP - General Family Medicine 05/10/23 documented as of this encounter Additional Source Comments The information contained in this document represents components of the legal health record. It is not the complete legal health record.[facility]
--- OUTSIDE RECORDS SUMMARY | 2025-09-07 16:57 | XMS_ITS | Encounter Summary ---
Author Organization [facility] Address [address] [facility] [address] [place] [address] Phone Care Team Providers Care Director Technical Name Role Phone Dimitris Lipscomb MD Unavailable Irena Ernst PA-C Unavailable [phone] Makeda Xavier MD Unavailable Ruby Carter MD Unavailable Gutierrez Patterson MD Unavailable Ruby Carter MD Primary Care Provider [phone] Kimberley Nicholson MD Primary Care Provider [phone] Arnol Blair DO Primary Care Provider Encounter Details Date Type Department Care Team (Late st Contact Info) Description 11/01/2018 Procedure Pass [facility], [address] [address] Social History Tobacco Use Types Packs/Day Years [...] on filedocumented in this encounter Care Teams Director Technical Relationship Specialty Start Date End Date Ruby Carter MD 38 [facility], [address] [place] [address] [email or web address] PCP - General 11/08/17 05/21/19 Kimberley Nicholson MD [address] [place] [address] [email or web address] PCP - General Family Medicine 05/22/19 05/09/23 Arnol Blair DO [address] [address] PCP - General Family Medicine 05/10/23 Dimitris Lipscomb MD 22 [facility], [address] [place] [address] [email or web address] Historical LMR Provider 08/22/17 11/12/21 Irena Ernst PA-C 4 [facility] Medicine, [facility] [place] [address] Historical LMR Provider 08/22/17 11/12/21 Makeda Xavier MD [address] [place] [address] [facility] [place] [address] Historical LMR Provider 08/22/17 Ruby Carter MD 38 [facility], [address] [place] [address] [email or web address] Historical LMR Provider 08/22/17 2 Gutierrez Patterson MD [address] [place] [address] Historical LMR Provider 08/22/17 2 documented as of this encounter Additional Source Comments The information contained in this document represents components of the legal health record. It is not the complete legal health record.[facility]
--- OUTSIDE RECORDS SUMMARY | 2025-09-07 16:57 | XMS_ITS | Encounter Summary ---
Author Organization [facility] Address [address] [facility] [address] [place] [address] Phone Care Team Providers Care Laborer Adjustable Steel Joist Name Role Phone Kimberley Nicholson MD Primary Care Provider + [phone] Arnol Blair DO Primary Care Provider + [phone] Encounter Details Date Type Department Care Team (Late st Contact Info) Description 02/03/2022 Ancillary Orders [facility],Outside Imaging [address] [place] [address] System, Provider Not In, [place] [address] Social History Tobacco Use Types Packs/Day Years [...] on filedocumented in this encounter Care Teams Laborer Adjustable Steel Joist Relationship Specialty Start Date End Date Kimberley Nicholson MD [address] [place] [address] [email or web address] PCP - General Family Medicine 05/22/19 Arnol Blair DO [address] [address] PCP - General Family Medicine 05/10/23 documented as of this encounter Additional Source Comments The information contained in this document represents components of the legal health record. It is not the complete legal health record.[facility]
--- OUTSIDE RECORDS SUMMARY | 2025-09-07 16:57 | XMS_ITS | Encounter Summary ---
Author Organization [facility] Address [address] [facility] [address] [place] [address] Phone Care Team Providers Care Concentrator Operator Name Role Phone Kimberley Nicholson MD Primary Care Provider [phone] Arnol Blair DO Primary Care Provider + [phone] Encounter Details Date Type Department Care Team ([facility] st Contact Info) Description 03/14/2022 Procedure Pass [facility], [address] [address] Social History Tobacco Use Types Packs/Day Years [...] on filedocumented in this encounter Care Teams Concentrator Operator Relationship Specialty Start Date End Date Kimberley Nicholson MD [address] [place] [address] [email or web address] PCP - General Family Medicine 05/22/19 Arnol Blair DO [address] [id number] PCP - General Family Medicine 05/10/23 documented as of this encounter Additional Source Comments The information contained in this document represents components of the legal health record. It is not the complete legal health record.[facility]
--- OUTSIDE RECORDS SUMMARY | 2025-09-07 16:57 | XMS_ITS | Clinical Summary ---
Author Organization [facility] Address [address] [place] [address] Care Team Providers Care Complaint Investigations Officer Name Role Phone Unknown, Primary Care Provider [...] of 2) 2011 Influenza Vaccine (#1) 2025 Pneumococcal Vaccine (1 of 1 - PCV) 2026 RSV Adult > 60+ Yrs or Pregn [...] age to complete this topic Care Teams Complaint Investigations Officer Relationship Specialty Start Date End Date Unknown, PCP - General 05/18/23
--- OUTSIDE RECORDS SUMMARY | 2025-09-07 16:57 | XMS_ITS | Encounter Summary ---
Author Organization [facility] Address [address] [place] [phone] Phone Care Team Providers Care Vice President Mission Integration Name Role Phone Dimitris Lipscomb MD Unavailable Irena Ernst PA-C Unavailable Makeda Xavier MD Unavailable Ruby Carter MD Unavailable Gutierrez Patterson MD Unavailable Ruby Carter MD Primary Care Provider Kimberley Nicholson MD Primary Care Provider [phone] Arnol Blair DO Primary Care Provider Reason for Referral * Physical Therapy (Routine) - Closed Specialty Diagnoses / Procedures Referred By Ani harmon Referred To Contact Physical Therapy Diagnoses Encounter for rehabilitation System, Provider Not In, [facility] [id number] [place] [address] Phone: tel: Referral ID Status Reason Start Date Expiration Date Visits Re quested Visits Authorized [id number] Closed 07/01/2018 07/01/2019 10 10 Encounter Details Date Type Department Care Team (Latest Contact Info) Description 07/03/2018 Transcribe Orders [facility] [address] [place] [phone] Ruby Carter MD 38 [facility] [address] [place] [phone] [email or web address] Encounter for rehabilitation (Primary Dx) Social History [...] Diagnoses Orde r Schedule Ambulatory referral to [facility] Physical Therapy Outpatient Referral Routine Encounter for rehabilitation Ordered: 07/03/2018 documented as of this encounter Visit Diagnoses Diagnosis Encounter for rehabilitation- Primary documented in this encounter Care Teams Vice President Mission Integration Relationship Specialty Start Date End Date Ruby Carter MD 38 [facility] [address] [place] [phone] [email or web address] PCP - General 11/08/17 05/21/19 Kimberley Nicholson [facility] [place] [address] [email or web address] PCP - General Family Medicine 05/22/19 05/09/23 Arnol Blair DO [address] [address] PCP - General Family Medicine 05/10/23 Dimitris Lipscomb MD [address] [place] [address], [address] [place] [address] [email or web address] Historical LMR Provider 08/22/17 11/12/21 Irena Ernst PA-C 4 [facility] [place] [address] [email or web address] Historical LMR Provider 08/22/17 11/12/21 Makeda Xavier MD 4 [facility], [place] [address] [email or web address] Historical LMR Provider 08/22/17 Ruby Carter MD [address] [place] [address] [address] [place] [phone] [email or web address] Historical LMR Provider 08/22/17 2 Gutierrez Patterson MD [address] [place] [address] Historical LMR Provider 08/22/17 2 documented as of this encounter Additional Source Comments The information contained in this document represents components of the legal health record. It is not the complete legal health record.[facility]
--- OUTSIDE RECORDS SUMMARY | 2025-09-07 16:57 | XMS_ITS | Clinical Summary ---
Author Organization [facility] Address [address] [facility] [address] [place] [phone] Phone Care Team Providers Care Utilities Ground Worker Name Role Phone Arnol Blair DO Primary Care Provider Allergies Active Allergy Reactions Criticality Noted Date Comments Miconazole 02/09/2022 Penicillins Other (See Comments) Medium 05/21/2019 Abdominal cramping Pollen Extracts Sneezing Medium 05/21/2019 Asthma like symptoms Quhghso-Glc-Qsi Reductase Inhibitors 05/15/2023 Joint pain Sulfamethoxazole Unknown [...] this topic Medical Devices Implanted Type Area Manager Energy Device Identifier Shelf Expiration Date Model / [...] 57 Admit Type: Outpatient Gender: Female Room: [place] [address] Referring MD: Kimberley Nicholson Exam Type: Colonoscopy [...] monitored continuously. The Olympus adult variable colonoscope [id number] #1 was introduced through the anus and [...] 7:32 AM Procedure Code(s): --- Professional --- 71449, Colonoscopy, flexible; diagnostic, including collection of specimen(s) by brushing or washing, when performed (separateprocedure) --- Technical --- 27381, Colonoscopy, flexible; diagnostic, including collection of specimen(s) [...] perforation orabscess without bleeding CPT copyright 2016 [employer]. All rights reserved. The codes documented in this report are preliminary and upon configuration release manager reviewmay be revised to meet current compliance requirements. [address] [place] [address] Kimberley Nicholson MD GI PROCEDURE ORDERABLES F inal Result from Last 3 Months or Most Recently Relevant to Health Maintenance Insurance ACO ACO Care Teams Utilities Ground Worker Relationship Specialty Start Date End Date [facility] [address] [address] PCP - General Family Medicine 05/10/23 Additional Source Comments The information contained in this document represents components of the legal health record. It is not the complete legal health record.[facility]
--- OUTSIDE RECORDS SUMMARY | 2025-09-07 16:57 | XMS_ITS | Data Portability ---
Author Organization [facility] Cisco Meyer [facility], [facility] Address [address] [place] [address] Care Team Providers [employer] Tester Name Role Phone FLASH ROCHA Primary Care Provider Assessment Encounter Date Assessment Date Assessment LastModified by Organization Details LastModified Time 11/13/2024 11/13/2024 PRIMARY DIAGNOSIS: Osteoarthritis of the left knee. REASON FOR ADMISSION: The patient is being admitted for a left total knee arthroplasty by Dr. Burciaga on 11/20/2024. HISTORY OF PRESENT ILLNESS: Ms. Edward is a very pleasant 64-year-old patient with complaints of left-sided knee pain. The patient reports the pain is severe and worse with activity. She has been falling frequently because of this pain and injuring other parts of her body. The patient reports the pain is severe and worse with activity, it has gotten to the point where it is affecting her ability to perform activities of daily living as well as daily social tasks. She has tried and failed conservative management and she is now ready to pursue a left total knee by Dr. Burciaga on 11/20/2024. PAST MEDICAL HISTORY: 1. Osteoarthritis of the left knee. She is status post right total knee replacement at [facility] in 2014. 2. Obesity with a BMI of 32.3. 3. Trigger finger of the right hand. 4. Bipolar, which she reports she is more depressed but has been under control. She reports feeling tired lately. Her in May. She has difficulty eating. Denies any suicidal ideations or homicidal ideations. She reports she is well maintained on Keppra and Lamictal. 5. Diverticulosis. 6. Atypical chest pain, but none recently. 7. Fibromyalgia, well maintained on Effexor. 8. HSV. 9. Hypothyroidism. 10. Mild persistent asthma. 11. Hyperlipidemia. 12. Obstructive sleep apnea, where the patient wears a CPAP at night with the settings of 9. 13. Spinal stenosis from L4-L5. 14. History of renal mass, status post biopsy in 2021 where she is followed by Urology. 15. Benign mammary dysplasias. 16. Medial derangement of the meniscus. PAST SURGICAL HISTORY: 1. Hysterectomy. 2. Breast reduction. 3. Tonsillectomy. 4. Knee replacement in 2014 at [facility]. 5. Epidermal nevus removal. 6. Bilateral salpingo-oophorect fatmata. MEDICATIONS: Current list of medications includes: 1. 1 mg she of clonazepam. She uses half of a tab 2 times a day as needed. 2. Concerta 36 mg, she uses daily. 3. Euthyrox 50 mcg daily. 4. Zetia 10 mg daily. 5. Lamictal 100 mg daily. 6. Keppra 1000 mg, she uses 3 tablets daily. 7. Melatonin 5 mg at bedtime. 8. ProAir as needed for shortness of breath, which she reports she has not used in quite some time. 9. Symbicort 160/4.5 mcg 2 puffs twice a day. 10. Valacyclovir 500 mg as needed for outbreak. 11. Venlafaxine 37.5 mg daily. ALLERGIES: MICONAZOLE CAUSES A RASH. PENICILLIN CAUSES A RASH AND ABDOMINAL CRAMPING. STATIN CAUSES BONE PAIN. SOCIAL HISTORY: She denies any alcohol, tobacco or illicit drug use. She is . PHYSICIANS: The patient's primary care physician is Dr. Flash Rocha. REVIEW OF SYSTEMS: The patient's 12-point review of systems is negative with the exception of HPI. She does endorse frequent falls and some current left arm pain for which she thinks she injured her rotator cuff during her last fall, but is able to use the walker. PHYSICAL EXAMINATION: VITAL SIGNS: Weight is 183 pounds. GENERAL: Alert and oriented with normal insight, affect, and grooming. The patient appears to have a tic. HEENT: Normocephalic. Conjunctivae pink. Sclerae are anicteric. NECK: Supple. Trachea midline. CHEST: Lungs are clear to auscultation bilaterally and breathing is unlabored. CARDIOVASCULAR: Heart has a regular rate and rhythm with normal S1, S2. No murmurs, rubs or gallops appreciated. ABDOMEN: Soft, nontender with normal bowel sounds. EXTREMITIES: Lower extremities: The patient has negative straight leg raise test bilaterally. Bilateral hips with full range of motion without pain. Left knee skin is intact without erythema, induration, or ecchymosis. Range of motion is 0-125. Knee is stable to varus/valgus loading. Calves are supple and nontender. Ankle motion is satisfactory. Pedal pulses palpable bilaterally and skin about the feet is intact. PREOPERATIVE DIAGNOSTIC DATA: Orthopedic x-rays demonstrate end-stage osteoarthritis of the left knee. There is vxen-cg-kzit articulation, subchondral sclerosis and osteophyte formation. EKG reads normal sinus rhythm with a nonspecific ST-T wave abnormality at 74 beats per minute. LABORATORY DATA: Within normal limits. ASSESSMENT AND PLAN: The patient has advanced osteoarthritis of the left knee and is now scheduled for left total knee arthroplasty by Dr. Burciaga on 11/20/2024. She was seen by the med consult program, who considered the patient a low pulmonary and cardiovascular risk for surgery. She will receive IV TXA and be placed on aspirin postoperatively for DVT prophylaxis. We will order a CPAP and monitor her on O2 overnight. Discharge plans will be to home with services. The patient is not a candidate for same day discharge as she has a history of frequent falls. She has been counseled regarding the risks and benefits of proposed procedure. Her questions have been answered and she acknowledges understanding. The patient wishes to proceed with surgery. CONTACTS: Her son, Pipo, with a phone number [phone]. [email or web address] Not available 11/14/2024 12:16:24 12/30/2024 12/30/2024 Imaging: Imaging ordered, independently reviewed and interpreted by Cesar Burciaga MD reveals the following findings: XR Knee Left Knee: Three views of the knee were obtained including AP, sunrise, and lateral views. Status post total knee arthroplasty. No evidence of complication, well fixed, well aligned. There is no evidence of loosening or migration. There is no evidence of osteolysis. No fractures are present. Alignment: Neutral Impression: Status post left total knee arthro-plasty, 6 weeks out Plan: The patient is doing well, continue activities as tolerated. Follow up with repeat radiographs in one year, or sooner if problems arise. [email or web address] Not available 12/30/2024 13:55:35 04/13/2025 04/13/2025 I am seeing the patient today under the supervision of Dr. Carpenter who was available but who did not see the patient. HPI: The patient is a 64-year-old female presenting today for evaluation of left knee pain. Is approximately 5 months status post left total knee arthroplasty performed by Dr. Burciaga. She had recently sustained a fall directly onto the anterior knee a few weeks ago. Since then she has been dealing with anterior knee pain with some radiation medially. She denies any feelings of instability. She has been able to walk on it and it feels like it is getting somewhat better. She is using an btvo-xze-kltrgyd topical medication called Penetrex and feels as if this is helping. PMH/PSH/MEDS/ALL/F MH/SOC HX/ROS all reviewed in detail per my medical intake sheet. ROS: the patient denies fevers or chills Exam: Vitals signs as noted. Alert and oriented x3. Appears well and in no acute distress. Extremities: Incision is well-healed. Calves are soft and nontender. No evidence of DVT. No lower extremity edema. Neurovascular status at baseline. Left knee: Moderate tenderness to palpation about the inferior pole of the patella and some radiation medially. Range of motion is 0-120. Ligaments are stable to varus and valgus stresses. No significant effusion. Quad strength is 5/5. X-rays were ordered, obtained and reviewed NEOS. 3 views of the left knee demonstrate a total joint arthroplasty with good interfaces and alignment. No evidence of any lysis or loosening. No acute fractures appreciated. No change with previous radiographs. Assessment: The patient is approximately 5 months s/p TKA. Anterior knee contusion Plan: I explained the nature of the diagnosis with the patient and its treatment options both conservative and surgical. Recommended continued use of topical medications. I did offer the patient Voltaren gel if she would like on top of what she has been using. She would like to continue with her current treatment regimen and give the knee more time. I also discussed the potential for a knee brace to allow for some comfort or reduction of symptoms however the patient is okay moving forward with close observation and rest. She will follow-up on an as-needed basis otherwise. The patient understands and agrees with the plan. They know to call if they have any further questions or concerns regarding their symptoms, or to follow up sooner if needed. [email or web address] Not available 04/14/2025 06:12:54 Plan of Treatment Reminders Order Date Submit Date Provider Last Modified By Organization Details Last Modified Time Details Appointments None recorded. Lab None recorded. Referral None recorded. Procedures None recorded. Surgeries None recorded. Imaging XR, knee, 3 view - LTKR patient fell having pain room 219 2024 025 [email or web address] [facility], [address], [address], [place], [address], 5 13:52:28 XR, knee, 3 view - room 320 1 p/o ltkr (ab) 2024 025 [email or web address] [facility], [address], [address], [place], [address], 5 11:18:55 Medication Orders clindamycin HCl 300 mg capsule [email or web address] [place] [address] Pharmacy # 27, [address] [facility], [place], [address], 5 11:51:06 doxycycline hyclate 100 mg tablet 2024 025 [facility], [address] [place], [address], 5 13:32:43 tramadol 50 mg tablet 2024 025 [facility], [address] [place], [address], 5 13:32:55 Celebrex 200 mg capsule 2024 025 [facility], [address] [place], [address], 5 13:32:33 Tylenol 8 Hour 650 mg tablet,exte nded release 2024 025 [facility], [address] [facility], [place], [address], 13:33:31 Patient TargetsNo targets recorded. Patient InstructionsNo instructions recorded. Reason for Referral None Reported. Results Created Date Observation Date Name Description Value Unit Range Abnormal Flag Note LastModifiedBy Organization Detail LastModifiedTime 12/15/1912/15/2024 CBC WITH DIFFE RENTI AL/PL ATELE T WBC 6.4 K/mm3 4.0-11 .0 normal Not Available [address], [address], 12/15/2024 15:23:00 12/15/1912/15/2024 CBC WITH DIFFE RENTI AL/PL ATELE T RBC 4.44 M/mm3 4.20-5 .40 normal Not Available [address], [address], 12/15/2024 15:23:00 12/15/19 25 12/15/2024 CBC WITH DIFFE RENTI AL/PL ATELE T hemoglobin 13.2 gm/dL 11.7-1 5.5 normal Not Available [address], [address], 12/15/2024 15:23:00 12/15/19 25 12/15/2024 CBC WITH DIFFE RENTI AL/PL ATELE T hematocrit 40.6 % 35.7-4 5.8 normal Not Available [address], [address], 12/15/2024 15:23:00 12/15/19 25 12/15/2024 CBC WITH DIFFE RENTI AL/PL ATELE T MCV 91.4 fL 80.0-1 00.0 normal Not Available [address], [address], 12/15/2024 15:23:00 12/15/19 25 12/15/2024 CBC WITH DIFFE RENTI AL/PL ATELE T MCH 29.7 pg 27.0-3 4.0 normal Not Available [address], [address], 12/15/2024 15:23:00 12/15/19 25 12/15/2024 CBC WITH DIFFE RENTI AL/PL ATELE T MCHC 32.5 g/dL 33.0-3 7.0 below low normal Not Available [address], [address], 12/15/2024 15:23:00 12/15/19 25 12/15/2024 CBC WITH DIFFE RENTI AL/PL ATELE T RDW 45.2 fL <47.0 Not Available [address], [address], 12/15/2024 15:23:00 12/15/19 25 12/15/2024 CBC WITH DIFFE RENTI AL/PL ATELE T platelets 393 K/mm3 150-46 0 normal Not Available [address], [address], 12/15/2024 15:23:00 12/15/19 25 12/15/2024 CBC WITH DIFFE RENTI AL/PL ATELE T neutrophils 65.9 % 44-76 normal Not Available [address], [address], 12/15/2024 15:23:00 12/15/19 25 12/15/2024 CBC WITH DIFFE RENTI AL/PL ATELE T lymphs 21.8 % 15-43 normal Not Available [address], [address], 12/15/2024 15:23:00 12/15/19 25 12/15/2024 CBC WITH DIFFE RENTI AL/PL ATELE T monocytes 8.3 % 4.5-10 .5 normal Not Available [address], [address], 12/15/2024 15:23:00 12/15/19 25 12/15/2024 CBC WITH DIFFE RENTI AL/PL ATELE T eos 2.4 % 0-6 normal Not Available [address], [address], 12/15/2024 15:23:00 12/15/19 25 12/15/2024 CBC WITH DIFFE RENTI AL/PL ATELE T basos 0.8 % 0-2 normal Not Available [address], [address], 12/15/2024 15:23:00 12/15/19 25 12/15/2024 CBC WITH DIFFE RENTI AL/PL ATELE T neutrophils (absolute) 4.2 K/mm3 1.3-7. 0 normal Not Available [address], [address], 12/15/2024 15:23:00 12/15/19 25 12/15/2024 CBC WITH DIFFE RENTI AL/PL ATELE T lymphs (absolute) 1.4 K/mm3 0.8-3. 1 normal Not Available [address], [address], 12/15/2024 15:23:00 12/15/19 25 12/15/2024 CBC WITH DIFFE RENTI AL/PL ATELE T monocytes(ab solute) 0.5 K/mm3 0.4-0. 9 normal Not Available [address], [address], 12/15/2024 15:23:00 12/15/19 25 12/15/2024 CBC WITH DIFFE RENTI AL/PL ATELE T eos (absolute) 0.2 K/mm3 0.0-0. 4 normal Not Available [address], [address], 12/15/2024 15:23:00 12/15/19 25 12/15/2024 CBC WITH DIFFE RENTI AL/PL ATELE T baso (absolute) 0.1 K/mm3 0.0-0. 1 normal Not Available [address], [address], 12/15/2024 15:23:00 12/15/19 25 12/15/2024 CBC WITH DIFFE RENTI AL/PL ATELE T immature granulocytes 0.8 % Not Available [address], [address], 12/15/2024 15:23:00 12/15/19 25 12/15/2024 CBC WITH DIFFE RENTI AL/PL ATELE T immature grans (abs) 0.1 K/mm3 Not Available [address], [address], 12/15/2024 15:23:00 12/15/19 25 12/15/2024 CBC WITH DIFFE RENTI AL/PL ATELE T NRBC 0.0 #/100 _WBC' s Not Available [address], [address], 12/15/2024 15:23:00 12/15/19 25 12/15/2024 CBC WITH DIFFE RENTI AL/PL ATELE T hematology comments: Commen t AUTOM ATED DIFFE RENTI AL MPV 9.3 FL 9.4-1 2.4 L ABS. NRBC 0.0 K/MM3 N Not Available [address], [address], 12/15/2024 15:23:00 12/15/19 25 12/15/2024 SEDIM ENTAT ION RATE- WESTE RGREN sedimentatio n rate-westerg trae 17 mm/HR 0-20 normal Not Available [address], [address], 12/15/2024 15:23:01 12/15/19 25 12/15/2024 C-PEYMAN CTIVE PROTE IN, QUANT C-reactive protein, quant 4.2 mg/dL 0-0.5 above high normal Not Available [facility] [address], [place], [address], 12/15/2024 15:23:03 12/04/19 25 12/04/2024 XR, knee, 3 view [email or web address] ?Encry pted=s hAaTro YD8dLq bEUv6g %2BXZw aYqtaq 0bqfl% 2Fg9IQ a4ajBk vP9nXo QUaueC m3YtLR FvZlgJ JJ8mAn HZtai3 1t2311 AC0Kqb HyMUqW gKiQtr MwF INTERFACE [facility] [address], [place], [address], 12/04/2024 12:07:27 12/04/19 25 12/04/2024 XR, knee, 3 view [email or web address] ?Encry pted=s hAaTro YD8dLq bEUv6g %2BXZw aYqtaq 0bqfl% 2Fg9IQ a4ajBk vP9nXo QUaueC m3YtLR FvZlgJ JJ8mAn HZtai3 5f3187 AC0Kqb HyMUqW gKiQtr MwF INTERFACE [facility] [address], [place], [address], 12/04/2024 12:07:29 04/13/20 25 04/13/2025 XR, knee, 3 view [email or web address] ?Encry pted=s hAaTro YD8dLq bEUv6g %2BXZw aYqtaq 0bqfl% 2Fg9IQ a4ajBk vP9nXo QUaueC m3YtLR FvZlgJ JJ8mAn HZtai3 5m4435 AC0Kla HyCV6O hKiQtr MwF INTERFACE [facility] [address], [place], [address], 04/13/2025 14:49:58 04/13/20 25 04/13/2025 XR, knee, 3 view [email or web address] ?Encry pted=s hAaTro YD8dLq bEUv6g %2BXZw aYqtaq 0bqfl% 2Fg9IQ a4ajBk vP9nXo QUaueC m3YtLR FvZlgJ JJ8mAn HZtai3 2h2110 AC0Kla HyCV6O hKiQtr MwF INTERFACE [facility] [address] [address], [place], [address], 04/13/2025 14:50:00 Result Notes Documentation Provider Name and Address Organization Details Recorded Time Xr, Knee, 3 View : [email or web address] Encrypted=rzLlLpzMB5bSrvE Uv6g%2WJWycNkiml9uats%2Fg 0JAq5eoNnaO4bCiGYmbgCf7Ih JJKaAlsNAS7hMpLQkcb07e900 3HW2PuhWqZBrRcYxTmdIuQ Not Available [facility] 12/04/2024 12:07: 28 Xr, Knee, 3 View : [email or web address] Encrypted=dxCvWxuFW6cVepY Uv6g%5MNLlmSdtxq1cquu%2Fg 9KMg3abLhhU0cNjNKipgFs3Ia FWVjChhYZF5rXsIYucf59i736 8YI5UviVhLUuPgVxIgfVyK Not Available [facility] 12/04/2024 12:07: 30 Xr, Knee, 3 View : [email or web address] Encrypted=kdRtQviEO7uGafS Uv6g%5ZGQjhUtbme2upvk%2Fg 6ZHw8ulKwfW8tRiEXtseGf6Xq VAIoXclZKO7yWvPNkbu38g030 0NB2YmeAeGH9KvEsPhyWkB Not Available [facility] 04/13/2025 14:49: 59 Xr, Knee, 3 View : [email or web address] Encrypted=fvPrGgrIU5bBdiX Uv6g%6TPEzmRwioe2myag%2Fg 3CGw1krHwtT9vImQQbiaCx1Zl MCLyVsmBWI8gQnPJwem61i195 9FM8PsoQoYC9HiOaGawWbS Not Available [facility] 04/13/2025 14:50: 00 Problems Name Problem SNOMED Code Status Onset Date Resolution Date Notes Provider Name and Address Organization Details Recorded Time Pain of left knee joint 0672414710398 07 Active 2023 KAYLIA L'HEUREUX [facility] 4 14:43:58 Osteoarthr itis of left knee joint 6920083972366 09 Active 2023 Cesar Burciaga MD [address], [place], [address] , [facility] 4 12:43:48 History of total knee arthroplas ty 7153611483619 Active 2024 Cesar Burciaga MD [address], [place], [address] , [facility] 5 13:55:33 Problem Notes None recorded. Procedures Surgical History Date Name Laterality Status Provider Name and Address Organization Details Recorded Time 5 Knee Surgery completed KAYLIA L'HEUREUX [facility] 04/13/2025 14:39:08 5 Orthopedic Surgery completed KAYLIA L'HEUREUX [facility] 04/13/2025 14:39:08 Imaging Results None recorded. Procedure Notes None recorded. Medical Equipment None Reported. Allergies Allergen ID Allergen Name Allergen Category Reaction Reaction Severity Criticality Documentation Date Start Date Code Code System Note Provider Name and Address Organization Details Recorded Time 426400 oxycodone medicatio n Not available Not available Not available 12/30/2024 7804 RxNorm SHOSHANA SANDRITA polk [place] - [facility] 13:34:45 59794 Product containin g penicilli n (product) medicatio n Not available Not available Not available 01/07/20242021 32218 8001 SNOMED Not Available [facility] 12:09:02 Medications Name Sig Start Date Stop Date Status Note LastModified by Organization Details LastModified Time venlafaxine ER 37.5 mg capsule,ext ended release 24 hr active Not Available Not Available Not Available gabapentin 600 mg tablet 10/21 completed Not Available Not Available Not Available clindamycin HCl 300 mg capsule Take 2 capsules by mouth 1/2 hour prior to dental appointme nt active Not Available Not Available No t Available fluconazole 150 mg tablet 12/30 completed Not Available Not Available Not Available levetiracet am 500 mg tablet active Not Available Not Available Not Available clonazepam 1 mg tablet active Not Available Not Available Not Available tramadol 50 mg tablet 1-2 tabs by mouth every 8 hours as needed for pain 12/30 completed Not Available Not Available Not Available Celebrex 200 mg capsule Take 1 capsule every day by oral route as directed for 33 days. 12/30 completed Not Available Not Available Not Available aspirin 325 mg tablet,nabil yed release TAKE 1 TABLET BY MOUTH TWO TIMES A DAY. 12/30 completed Not Available Not Available Not Available levothyroxi ne 50 mcg tablet active Not Available Not Available Not Available pantoprazol e 40 mg tablet,nabil yed release TAKE 1 TABLET BY MOUTH EVERY DAY. 12/30 completed Not Available Not Available Not Available Concerta 36 mg tablet,exte nded release active Not Available Not Available Not Available diclofenac potassium 50 mg tablet 12/15 completed Not Available Not Available Not Available docusate sodium 100 mg capsule TAKE 1 CAPSULE BY MOUTH TWO TIMES A DAY NEEDED FOR CONSTIPAT ION. 12/30 completed Not Available Not Available Not Available gabapentin 300 mg capsule 10/21 completed Not Available Not Available Not Available ondansetron 4 mg disintegrat ing tablet DISSOLVE 1 TABLET ON THE TONGUE EVERY 8 HOURS NEEDED FOR NAUSEA AND VOMITING. 12/30 completed Not Available Not Available Not Available doxycycline hyclate 100 mg tablet Take 1 tablet twice a day by oral route. 12/30 completed Not Available Not Available Not Available lamotrigine 100 mg tablet active Not Available Not Available Not Available oxycodone 5 mg tablet TAKE 1 TO 2 TABLETS BY MOUTH EVERY 4 HOURS NEEDED FOR MODERATE TO SEVERE PAIN. 12/15 completed Not Available Not Available Not Available ezetimibe 10 mg tablet active Not Available Not Available Not Available Tylenol 8 Hour 650 mg tablet,exte nded release Take 1 tablet 3 times a day by oral route as directed for 33 days. 12/30 completed Not Available Not Available Not Available duloxetine 20 mg capsule,del ayed release 08/25 completed Not Available Not Available Not Available nystatin Nystatin 438409LFG T/ML Suspensio n 08/25 completed Statu s: 'Curr ent'; Not Available Not Available Not Available levetiracet am levETIRAc etam 500MG Tablet 10/21 completed Statu s: 'Curr ent'; Not Available Not Available Not Available vilazodone 40 mg tablet 08/25 completed Not Available Not Available Not Available Vitals Date Recorded Body height Body mass index (BMI) Body weight Provider Name and Address Organization Details Last Updated DateTime 11/13/2024 159.39 cm 32.7 kg/m2 63521.4 g DIDIER Velasquez [facility] 11/13/2024 10:28:10 Date Recorded Body height Body mass index (BMI) Body weight Provider Name and Address Organization Details Last Updated DateTime 12/04/2024 159.39 cm 32.7 kg/m2 51619.4 g Ifeoma Zarco PA-C [address] [facility] [address], [place], [address], [place] - [facility] 12/04/2024 11:56:06 Date Recorded Body height Body mass index (BMI) Body weight Provider Name and Address Organization Details Last Updated DateTime 12/15/2024 159.39 cm 32.7 kg/m2 33869.4 g Hal Godfrey [facility] 12/15/2024 08:57:58 Date Recorded Body height Body mass index (BMI) Body weight Provider Name and Address Organization Details Last Updated DateTime 12/30/2024 159.39 cm 32.7 kg/m2 13269.4 g SHOSHANA REMY [facility] 12/30/2024 13:31:25 Date Recorded Body height Body mass index (BMI) Body weight Provider Name and Address Organization Details Last Updated DateTime 04/13/2025 159.39 cm 32.7 kg/m2 59871.4 g NORENE L'ASHLYNEUX [facility] 04/13/2025 14:39:17 Social History Question Answer Notes LastModified by [employer] Details LastModified Time Tobacco Smoking Status Never Smoker NOREEN L'HEUREUX [facility] 08/25/2024 14:43:38 What Is Your Relationship Status? Information not available 08/25/2024 Sex: Unknown Functional Status Question Answer Note LastModified by [employer] Details LastModified Time Do you use any illicit or recreational drugs? No Information not available 08/25/2024 Do you or have you ever used any other forms of tobacco or nicotine? No Information not available 08/25/2024 What is your level of alcohol consumption? None Information not available 08/25/2024 Mental Status None recorded. Family History Nothing Reported. Medical History Condition Response Coronary Artery Disease N Anxiety/Depression N Emphysema N COPD N Pacemaker N Vascular Disease N Heart Trouble N Gastrointestinal Disease N Autoimmune disease N Inflammatory Joint disease N Orthotics N Arthritis N Blood Clot N Acid Reflux (GERD) N Cancer N Stroke N Circulation Problems N Rheumatoid Arthritis N Arrhythmia N Headaches N Fibromyalgia N Allergies/Hayfever N Breathing or lung disorders N Nerve Disorders N Thyroid Problems N Kidney/Bladder Problems N Anemia N Heart Attack ([place]) N Cholesterol N Diabetes N Bleeding Disorder N Seizures/Epilepsy N AIDS/HIV N Congestive Heart Failure (CHF) N Asthma N Peripheral Vascular Disease N Sleep Apnea N Hepatitis N Heart Disease N Pulmonary Embolism N Hypertension N Osteoporosis N Gynecological HistoryNo gynecological history recorded. Obstetrics History GPAL:G 0 P 0 0 0 0 Past Encounters Encounter ID Performer Location Encounter Start Date Encounter Closed Date Diagnosis/Indication Diagnosis SNOMED-CT Code Diagnosis ICD10 Code Diagnosis IMO Codes Diagnosis Note [id number] Vinita Arias PA-C [facility] Clinical [address] [facility] [place], [place] [address] 08/25/2024 14:36:13 09/17/2024 12:20:24 Osteoarthritis of left knee joint [id number] 50430 M17.12 [id number] Reviewed patient's imaging and exam findings in detail with her. Discussed that she has advanced medial compartmen t left knee osteoarthr itis for which the only curative treatment would be total joint replacemen t. She has exhausted conservati ve treatment measures including activity modificati on, anti-infla mmatories, home exercise program and injections . It is now to the point where she is having instabilit y and is throwing off her back. She has progressed to having to use a rolling walker and is not able to ambulate any length of distance. Therefore recommend referral to Dr. Burciaga for considerat ion of total joint replacemen t. All questions and concerns were addressed and answered. Offered hinged knee brace for stability purposes which she declines today. Also offered cortisone injection which she also declines as they do not work for her and she would like surgery sooner rather than later. Pain of le ft knee joint [id number] 98722 M25.562 [id number] MD Luba Mccabe [address] [place] [address] 10/21/2024 11:08:30 11/14/2024 08:41:09 Osteoarthritis of left knee joint [id number] 41600 M17.12 [id number] Neetu Dennis, [employer] DIRECTOR [facility] [address] [place] [address] 11/13/2024 10:20:44 11/25/2024 03:57:53 Osteoarthritis of left knee joint [id number] M17.12 [id number] Ifeoma Zarco PA-C [facility] [place] [address] [place] [address] 12/04/2024 11:26:20 12/15/2024 11:18:55 History of left total knee replacement [id number] 575404 Z96.652 [id number] Postoperative visit 1833 04503 Z48.89 [id number] ZENIA Westfall 2nd [address] [place] [address] 12/15/2024 08:53:56 12/31/2024 12:36:46 History of total knee arthroplasty [id number] 105 Z96.2 [id number] Patient appears to have superficia l suture abscess. I did express what I could from the region and was not able to express any further drainage. She has full range of motion of the knee and it does not appear to track deeper into the joint itself. Will initiate her on doxycyclin e twice daily x 7 days and would like her to recheck with us in the office in 1 weeks time to be sure that this is healing. I applied Steri-Stri ps to the affected area. will review patient's case with Dr. Burciaga as well. [id number] MD UMER Mccabe 2[address] floor [address] [place] [address] 12/30/2024 13:27:29 01/15/2025 10:03:07 History of total knee arthroplasty [id number] [facility] [id number] ZENIA Mathews 2nd [facility] [address] [place] [address] 04/13/2025 14:29:05 04/28/2025 13:52:28 History of left total knee replacement [id number] [facility] [id number] Health Concerns Section Related Observation LastModified by Organization Detai ls LastModified Time None Recorded Concern Status LastModified by Organization Details LastModified Time None Recorded Advance Directives Directive None Recorded Payers Insurance Date Sequence Insurance Name Policy Number Policy Urbano Covered Member ID Urbano Member ID Guarantor Name 08/25/2024 1 [facility] PUBLIC PLANS [facility]CTOR[facility] TYPE I (HMO) [id number] Barbara Edward [id number] Barbara Edward 04/28/2025 1 [employer] [facility] (MEDICAID HMO) [id number] Barbara Edward [id number] Barbara Edward Notes Date Note Type Note Provider Name and Address Organization Details Recorded Time 12/04/2024 text/html I am seeing the patient today under the supervision of Dr. Figueroa who was available but who did not see the patient. HPI: Patient comes in for follow-up, now 2 weeks status post left total knee arthroplasty. Happy with results. No significant complaints of pain. Range of motion with physical therapy is 0-110 degrees. No neurovascular changes. Past family, medical, social history and review of systems has been reviewed, updated and is located in the patient s chart. Examination: The patient is well appearing and in no apparent distress. Alert and oriented x3. Gait is antalgic on the left with use of ambulatory aid. Examination left knee reveals a healing surgical incision. Appropriate postoperative effusion, no erythema or drainage. Neurovascularly intact. Range of motion from 0-110 degrees. No ligamentous instability to varus or valgus stress test at 0 or 30 . Calf is soft and nontender bilaterally. Appropriate strength with knee flexion/extension and ankle dorsiflexion/plantarf lexion. Able to actively straight leg raise. X-rays ordered, obtained and reviewed at [facility] today include 3 views of the left knee. Images demonstrate total knee arthroplasty components to be in good position and alignment. No evidence of any lysis or loosening. No acute fractures appreciated. Impression: Two weeks status post left total knee arthroplasty Plan: Nature of the diagnosis has been discussed today. At this point the patient is doing well. Continue physical therapy with a focus on regaining range of motion and strengthening. Patient is on ASA for DVT prophylaxis. Pain is controlled on oral medication. We reviewed the signs/symptoms of infection. Patient will follow up as scheduled, sooner if there are any issues. All questions have been answered. [employer] speech recognition special shopper software was used to create portions of this document. An attempt at proofreading has been made to minimize errors. Please call for corrections. Ifeoma Zarco PA-C [address] [place] [address] [address] [facility], [place], [address], [facility] 12/04/2024 21:41:56 12/15/2024 text/html ROS as noted in the HPI I am seeing the patient under the general supervision of Dr. Burciaga who was available but who did not see the patient. Patient is 3 weeks status post left total knee arthroplasty by Dr. Burciaga. She presents today for incision check. She reports she started noticing some serous drainage from the superior aspect of her incision 3 days ago. It has since then gotten red and slightly warm. Drainage has worsened and she has noticed some unroofing of the superficial skin at the proximal aspect of the incision. No fevers, chills, pain with range of motion or other systemic symptoms. Vinita Arias PA-C [address], [place], [address], [facility] 12/15/2024 09:29:31 12/30/2024 text/html ROS as noted in the HPI History of present illness:This patient follows up today and is now 6 weeks out from left total knee arthroplasty. Their pain is well controlled and they are progressing as expected with physical therapy. Able to do current activities without significant difficulty. They have no major complaints at this time and are satisfied with their current state of recovery.Past family, medical, social history and review of systems has been reviewed and updated, and is located in the patient s chart. Cesar Burciaga MD [address] [facility] [address], [place], [address], [facility] 12/30/2024 13:55:46 OBGyn Episode No OBEpisode recorded.
== END 2025-09-07 15:54 | disposition home or self-care (01) ==
LOC: HO.CT 15:53
PROVIDERS: PCP Family Medicine; Visit Provider Physician Assistant
DX: M41.20 Other idiopathic scoliosis, site unspecified (principal)
CPT/HCPCS: 72082; 72110; 72131

== ENCOUNTER → 2025-09-07 16:02 | Outpatient (BNV) | payer OTHER, SELFPAY | PROVIDERS: PCP Family Medicine; Visit Provider Radiology Diagnostic Radiology | DX: S32.010A Wedge compression fracture of first lumbar vertebra, initial encounter for closed fracture (principal); M41.26 Other idiopathic scoliosis, lumbar region; M47.816 Spondylosis without myelopathy or radiculopathy, lumbar region; M51.369 Other intervertebral disc degeneration, lumbar region without mention of lumbar back pain or lower extremity pain | CPT/HCPCS: 72082; 72110; 72131 ==

== ENCOUNTER 2025-09-18 14:23 | Outpatient (AMB) | payer OTHER, SELFPAY ==
--- NOTE | 2025-09-18 14:43 | A.SPINEOV_ITS ---
Intake Visit Reasons: f/u on a day in office Intake Note: Mr. Edward is here today for a F/u. Sheep Herder Required: No Allergies Penicillins Allergy (Severe, Verified 07/10/25 14:07) Hives Assessment & Plan Assessment & Plan (1) Syrinx: Code(s): G95.0 - Syringomyelia and syringobulbia Category: Medical (2) Degenerative disc disease, cervical: Code(s): M50.30 - Other cervical disc degeneration, unspecified cervical region Category: Medical (3) Lumbar degenerative disc disease: Code(s): M51.369 - Other intervertebral disc degeneration, lumbar region without mention of lumbar back pain or lower extremity pain Category: Medical Plan Mrs Edward is here in follow-up. She came in because she was following up on her CAT scan and lumbar x-rays that were done, and also wanted to report a few episodes of incontinence which she experienced a few days ago. It was 2 nights in a row she was getting up in the middle night to go to the bathroom and her bladder let loose. She was not aware that she was urinating until it was leaking down her leg. This was concerning to her so she came in to see us. Since that time it has not happened again. She has a known history of a thoracic syrinx. Please refer to my previous note for the specifics of her issues. On my exam today, she is able to stand up on her own and ambulate in the hallway, however tandem gait walking reveals she is unsteady. A little bit of strength loss in her hip flexion but I am not sure if this is secondary to pain or true weakness. No hyperreflexia. Rest of her motor exam and sensory exam is intact. I reviewed her imaging with Dr. Coy again. There might be some connection with the syrinx with her bladder, but it should not be anything that gives her acute issues. This has been a stable syrinx that she has known about for at least 7 years. It is possible that she is more prone to urinary retention and may have some issues with urodynamics. She has no pravin cauda equina symptoms. Dr. Coy recommend she follow up with her urologist to talk about possible treatment options. With regard to her lumbar spine, she does have scoliotic curvature to her spine and severe degenerative disc disease in the lower part of the lumbar spine, but has very poor bone quality. Suspect she would be suboptimal surgical candidate so we are not offering her lumbar fusion at this time. Total amount of time spent in this visit was 20 minutes in discussion of symptoms, MRI, CT and x-ray imaging results and subsequent plan of care Lino Coy MD,PhD [facility] Coding Level of Care Code Est Pt Level 3 (57600) Diagnoses Syrinx G95.0 Degenerative disc disease, cervical M50.30 Lumbar degenerative disc disease M51.369
--- OUTSIDE RECORDS SUMMARY | 2025-09-18 21:23 | XMS_ITS | Encounter Summary ---
Author Organization [facility] Address [address] [facility] [address] [place] [address] Phone Care Team Providers Care Size Stamper Name Role Phone Kimberley Nicholson MD Primary Care Provider [phone] Arnol Blair DO Primary Care Provider [phone] Reason for Referral * MRI/CAT Scan - Closed Specialty Diagnoses / Procedures Referred By Ani harmon Referred To Contact Radiology Diagnoses Weakness Procedures MRI Thoracic Spine CHG MRI, DORSAL SPINE CHG MRI, DORSAL SPINE COMBO Yan Ren DO Phone: tel: fax: [email or web address] Referral ID Status Reason Start Date Expiration Date Visits Re quested Visits Authorized [id number] Closed 04/26/2022 06/25/2022 1 1 Encounter Details Date Type Department Care Team (Latest Contact Info) Description 04/10/2022 Transcribe Orders Virtual Department [address] [place] [address] Yan Ren DO [address] [place] [address] [email or web address] Weakness (Primary Dx) Social History Tobacco Use [...] the T10-11 level and caudally to the [id number]. Contrast: No abnormal enhancement. Soft Tissue: No [...] fatigue documented in this encounter Care Teams Size Stamper Relationship Specialty Start Date End Date Kimberley Nicholson MD [address] [place] [address] [email or web address] PCP - General Family Medicine 05/22/19 Arnol Blair DO [address] [address] PCP - General Family Medicine 05/10/23 documented as of this encounter Additional Source Comments The information contained in this document represents components of the legal health record. It is not the complete legal health record.[facility]
--- OUTSIDE RECORDS SUMMARY | 2025-09-18 21:23 | XMS_ITS | Encounter Summary ---
Author Organization [facility] Address [address] [facility] [address] [place] [address] Phone Care Team Providers Care Electronic Funds Transfer Coordinator Name Role Phone Dimitris Lipscomb MD Unavailable [phone] Irena Ernst PA-C Unavailable Makeda Xavier MD Unavailable [phone] Ruby Carter MD Unavailable Gutierrez Patterson MD Unavailable [phone] Kimberley Nicholson MD Primary Care Provider [phone] Arnol Blair DO Primary Care Provider [phone] Encounter Details Date Type Department Care Team (Late st Contact Info) Description 06/04/2019 Procedure Pass [facility] Endoscopy Admitting Dept Virtual Department [address] [place] [address] [id number] Social History Tobacco Use Types Packs/Day Years [...] on filedocumented in this encounter Care Teams Electronic Funds Transfer Coordinator Relationship Specialty Start Date End Date Kimberley Nicholson MD [address] [place] [address] [email or web address] PCP - General Family Medicine 05/22/19 05/09/23 Arnol Blair DO [address] [facility] [address] [place] [address] PCP - General Family Medicine 05/10/23 Dimitris Lipscomb MD 22 [facility], 2nd [place] [address] [email or web address] Historical LMR Provider 08/22/17 11/12/21 Irena Ernst PA-C 4 [facility], [place] [address] [email or web address] Historical LMR Provider 08/22/17 11/12/21 Makeda Xavier MD 4 [facility], [place] [address] [email or web address] Historical LMR Provider 08/22/17 Ruby Carter MD 38 [facility] [address] [place] [id number] [email or web address] Historical LMR Provider 08/22/17 2 Gutierrez Patterson MD [address] [place] [address] Historical LMR Provider 08/22/17 2 documented as of this encounter Additional Source Comments The information contained in this document represents components of the legal health record. It is not the complete legal health record.[facility]
--- OUTSIDE RECORDS SUMMARY | 2025-09-18 21:23 | XMS_ITS | Encounter Summary ---
Author Organization [facility] Address [address] [facility] [address] [place] [address] Phone Care Team Providers Care Pacu Nurse Name Role Phone Dimitris Lipscomb MD Unavailable Irena Ernst PA-C Unavailable [phone] Makeda Xavier MD Unavailable Ruby Carter MD Unavailable Gutierrez Patterson MD Unavailable Ruby Carter MD Primary Care Provider [phone] Kimberley Nicholson MD Primary Care Provider [phone] Arnol Blair DO Primary Care Provider Encounter Details Date Type Department Care Team (Late st Contact Info) Description 11/01/2018 Procedure Pass [facility], [address] [address] Social History Tobacco Use Types Packs/Day Years [...] on filedocumented in this encounter Care Teams Pacu Nurse Relationship Specialty Start Date End Date Ruby Carter MD [address] [facility], [address] [place] [address] [email or web address] PCP - General 11/08/17 05/21/19 Kimberley Nicholson MD [address] [place] [address] [email or web address] PCP - General Family Medicine 05/22/19 05/09/23 Arnol Blair DO [address] [address] PCP - General Family Medicine 05/10/23 Dimitris Lipscomb MD 22 [facility], [address] [place] [address] [email or web address] Historical LMR Provider 08/22/17 11/12/21 Irena Ernst PA-C 4 [facility], [facility] [place] [address] Historical LMR Provider 08/22/17 11/12/21 Makeda Xavier MD [address] [place] [address] [facility] [place] [address] Historical LMR Provider 08/22/17 Ruby Carter MD [address] [facility], [address] [place] [address] [email or web address] Historical LMR Provider 08/22/17 2 Gutierrez Patterson MD [address] [place] [address] Historical LMR Provider 08/22/17 2 documented as of this encounter Additional Source Comments The information contained in this document represents components of the legal health record. It is not the complete legal health record.[facility]
--- OUTSIDE RECORDS SUMMARY | 2025-09-18 21:23 | XMS_ITS | Encounter Summary ---
Author Organization [facility] Address [address] [facility] [address] [place] [address] Phone Care Team Providers Care Airport Operations Manager Name Role Phone Dimitris Lipscomb MD Unavailable Irena Ernst PA-C Unavailable Makeda Xavier MD Unavailable Ruby Carter MD Unavailable Gutierrez Patterson MD Unavailable Ruby Carter MD Primary Care Provider Kimberley Nicholson MD Primary Care Provider [phone] Arnol Blair DO Primary Care Provider [phone] Encounter Details Date Type Department Care Team (Late st Contact Info) Description 11/01/2018 Ancillary Orders Virtual Department [address] [place] [address] Barbara Alatorre, AMPARO [address] [place] [address] Left knee pain, unspecified chronicity Social History [...] cyst rupture. Small joint effusion. POS - [id number] Narrative 11/10/2018 10:27 AM EST TECHNIQUE: Exam performed on a 1.5 Riddhi high-field MRI scanner. Axial proton density with fat suppression, coronal proton density with fat suppression, sagittal T1, oblique sagittal proton density and proton density with fat suppression parallel to the plane of the ACL sequences were obtained. FINDINGS: Comparison is made with the prior radiographic study obtained at [facility] dated 01/08/2015. There is ill-defined [...] with the prior radiographic study obtained at [facility] dated 01/08/2015. There is ill-defined linear [...] popliteal cystrupture. Small joint effusion. POS - [id number] Barbara Alatorre CHILD WELFARE SPECIALIST IMG MR EXTREMITY Final Re sult documented in this encounter Visit Diagnoses Diagnosis Left knee pain, unspecified chronicity Left knee pain, unspecified chronicity documented in this encounter Care Teams Airport Operations Manager Relationship Specialty Start Date End Date Ruby Carter MD [address] [place] [address], [address] [place] [phone] [email or web address] PCP - General 11/08/17 05/21/19 Kimberley [facility] [place] [address] [email or web address] PCP - General Family Medicine 05/22/19 05/09/23 Arnol Blair DO [address] [facility] [address] [place] [address] PCP - General Family Medicine 05/10/23 Dimitris Lipscomb MD [address] [facility], 2nd [place] [address] [email or web address] Historical LMR Provider 08/22/17 11/12/21 Irena Ernst PA-C [address] [place] [address] [facility], [place] [address] [email or web address] Historical LMR Provider 08/22/17 11/12/21 Makeda Xavier MD [address] [place] [address] Orthopedics & Sports [facility], [place] [address] [email or web address] Historical LMR Provider 08/22/17 Ruby Carter MD [address] [facility] [address] [place] [address] [email or web address] Historical LMR Provider 08/22/17 2 Gutierrez Patterson MD [address] [place] [address] Historical LMR Provider 08/22/17 2 documented as of this encounter Additional Source Comments The information contained in this document represents components of the legal health record. It is not the complete legal health record.[facility]
--- OUTSIDE RECORDS SUMMARY | 2025-09-18 21:23 | XMS_ITS | Encounter Summary ---
Author Organization [facility] Address [address] [facility] [address] [place] [address] Phone Care Team Providers Care Technology Architect Name Role Phone Kimberley Nicholson MD Primary Care Provider [phone] Arnol Blair DO Primary Care Provider [phone] Encounter Details Date Type Department Care Team ([facility] st Contact Info) Description 04/10/2022 Procedure Pass [facility], [address] [address] Social History Tobacco Use Types Packs/Day Years [...] on filedocumented in this encounter Care Teams Technology Architect Relationship Specialty Start Date End Date Kimberley Nicholson MD [address] [place] [address] [email or web address] PCP - General Family Medicine 05/22/19 Arnol Blair DO [address] [id number] PCP - General Family Medicine 05/10/23 documented as of this encounter Additional Source Comments The information contained in this document represents components of the legal health record. It is not the complete legal health record.[facility]
--- OUTSIDE RECORDS SUMMARY | 2025-09-18 21:24 | XMS_ITS | Encounter Summary ---
Author Organization [facility] Address [address] [facility] [address] [place] [address] Phone Care Team Providers Care Paediatric Physiotherapist Name Role Phone Kimberley Nicholson MD Primary Care Provider + [phone] Arnol Blair DO Primary Care Provider + [phone] Encounter Details Date Type Department Care Team (Latest Contact Info) Description 03/17/2022 Transcribe Orders Virtual Department [address] [place] [address] Yan Ren, [address] [place] [address] [email or web address] Sacrococcygeal disorders, not elsewhere classified (Primary [...] classified documented in this encounter Care Teams Paediatric Physiotherapist Relationship Specialty Start Date End Date Kimberley Nicholson MD [address] [place] [address] [email or web address] PCP - General Family Medicine 05/22/19 Arnol Blair DO [address] [address] PCP - General Family Medicine 05/10/23 documented as of this encounter Additional Source Comments The information contained in this document represents components of the legal health record. It is not the complete legal health record.[facility]
--- OUTSIDE RECORDS SUMMARY | 2025-09-18 21:24 | XMS_ITS | Encounter Summary ---
Author Organization [facility] Address [address] [facility] [address] [place] [address] Phone Care Team Providers Care Environmental Health Inspector Name Role Phone Kimberley Nicholson MD Primary Care Provider [phone] Arnol Blair DO Primary Care Provider + [phone] Encounter Details Date Type Department Care Team ([facility] st Contact Info) Description 03/14/2022 Procedure Pass [facility], [address] [address] Social History Tobacco Use Types Packs/Day Years [...] on filedocumented in this encounter Care Teams Environmental Health Inspector Relationship Specialty Start Date End Date Kimberley Nicholson MD [address] [place] [address] [email or web address] PCP - General Family Medicine 05/22/19 Arnol Blair DO [address] [id number] PCP - General Family Medicine 05/10/23 documented as of this encounter Additional Source Comments The information contained in this document represents components of the legal health record. It is not the complete legal health record.[facility]
--- OUTSIDE RECORDS SUMMARY | 2025-09-18 21:24 | XMS_ITS | Encounter Summary ---
Author Organization [facility] Address [address] [facility] [address] [place] [address] Phone Care Team Providers Care Information Systems Manager Name Role Phone Kimberley Nicholson MD Primary Care Provider + [phone] Arnol Blair DO Primary Care Provider + [phone] Encounter Details Date Type Department Care Team (Late st Contact Info) Description 02/03/2022 Ancillary Orders [facility],Outside Imaging [address] [place] [address] System, Provider Not In, [place] [address] Social History Tobacco Use Types Packs/Day Years [...] on filedocumented in this encounter Care Teams Information Systems Manager Relationship Specialty Start Date End Date Kimberley Nicholson MD [address] [place] [address] [email or web address] PCP - General Family Medicine 05/22/19 Arnol Blair DO [address] [address] PCP - General Family Medicine 05/10/23 documented as of this encounter Additional Source Comments The information contained in this document represents components of the legal health record. It is not the complete legal health record.[facility]
--- OUTSIDE RECORDS SUMMARY | 2025-09-18 21:24 | XMS_ITS | Clinical Summary ---
Author Organization [facility] Address [address] [facility] [address] [place] [address] Phone Care Team Providers Care Sustainable Communities Designer Name Role Phone Arnol Blair DO Primary Care Provider Allergies Active Allergy Reactions Criticality Noted Date Comments Miconazole 02/09/2022 Penicillins Other (See Comments) Medium 05/21/2019 Abdominal cramping Pollen Extracts Sneezing Medium 05/21/2019 Asthma like symptoms Eapxoca-Npp-Qvu Reductase Inhibitors 05/15/2023 Joint pain Sulfamethoxazole Unknown [...] on patient's age to complete this topic IPV VACCINES Aged Out No longer eligi ble based on patient's age to complete this topic MENINGOCOCCAL VACCINES (ACWY) Aged Out No longer eligible based on patient's age to complete this topic MENINGOCOCCAL VACCINES (B) Aged Out N o longer eligible based on patient's age to complete this topic Medical Devices Implanted Type Area Grid Inspector Device Identifier Shelf Expiration Date Model / [...] 57 Admit Type: Outpatient Gender: Female Room: [place] [address] Referring MD: Kimberley Nicholson Exam Type: Colonoscopy [...] monitored continuously. The Olympus adult variable colonoscope [id number] #1 was introduced through the anus and [...] 7:32 AM Procedure Code(s): --- Professional --- 29598, Colonoscopy, flexible; diagnostic, including collection of specimen(s) by brushing or washing, when performed (separateprocedure) --- Technical --- 50514, Colonoscopy, flexible; diagnostic, including collection of specimen(s) [...] perforation orabscess without bleeding CPT copyright 2016 [employer]. All rights reserved. The codes documented in this report are preliminary and upon gender studies professor reviewmay be revised to meet current compliance requirements. [address] [place] [address] Kimberley Nicholson MD GI PROCEDURE ORDERABLES F inal Result from Last 3 Months or Most Recently Relevant to Health Maintenance Insurance [employer]CO [employer] ACO [employer] ACO Care Teams Sustainable Communities Designer Relationship Specialty Start Date End Date [facility] [address] [address] PCP - General Family Medicine 05/10/23 Additional Source Comments The information contained in this document represents components of the legal health record. It is not the complete legal health record.[facility]
--- OUTSIDE RECORDS SUMMARY | 2025-09-18 21:24 | XMS_ITS | Data Portability ---
Author Organization [facility] Cisco Meyer [facility] Surgeons [facility], [facility] Address [address] [place] [address] Care Team Providers Care House Mover Name Role Phone FLASH ROCHA Primary Care [...] status post right total knee replacement at [facility] in 2014. 2. Obesity with a [...] Tonsillectomy. 4. Knee replacement in 2014 at [facility]. 5. Epidermal nevus removal. 6. Bilateral [...] osteoarthritis of the left knee. There is wduz-ia-xhkj articulation, subchondral sclerosis and osteophyte formation. EKG [...] Her son, Pipo, with a phone number [phone]. [email or web address] Not available 11/14/2024 12:16:24 12/30/2024 12/30/2024 [...] one year, or sooner if problems arise. [email or web address] Not available 12/30/2024 13:55:35 04/13/2025 04/13/2025 I [...] getting somewhat better. She is using an zche-eil-hdjqxvt topical medication called Penetrex and feels as [...] or to follow up sooner if needed. [email or web address] Not available 04/14/2025 06:12:54 Plan of Treatment Reminders Order Date Submit Date Provider Last Modified By Organization Details Last Modified Time Details Appointments None recorded. Lab None recorded. Referral None recorded. Procedures None recorded. Surgeries None recorded. Imaging XR, knee, 3 view - LTKR patient fell having pain room 219 2024 025 [email or web address] [address], [place], [address], 5 13:52:28 XR, knee, 3 view - room 320 1 p/o ltkr (ab) 2024 025 [facility] [address], [place], [address], 5 11:18:55 Medication Orders clindamycin HCl 300 mg capsule [address] [place] [address] Pharmacy # 27, [address] [facility], [place], [address], 5 11:51:06 doxycycline hyclate 100 mg tablet 2024 025 [facility] # 27, [address] [place], [address], 5 13:32:43 tramadol 50 mg tablet 2024 025 [facility] # 27, [address] [place], [address], 5 13:32:55 Celebrex 200 mg capsule 2024 025 [facility] # 27, [address] [place], [address], 5 13:32:33 Tylenol 8 Hour 650 mg tablet,exte nded release 2024 025 [facility], [address] [facility], [place], [address], 13:33:31 Patient TargetsNo targets recorded. Patient InstructionsNo instructions recorded. Reason for Referral None Reported. Results Created Date Observation Date Name Description Value Unit Range Abnormal Flag Note LastModifiedBy Organization Detail LastModifiedTime 12/15/1912/15/2024 CBC WITH DIFFE RENTI AL/PL ATELE T WBC 6.4 K/mm3 4.0-11 .0 normal Not Available [address], [address], 12/15/2024 15:23:00 12/15/1912/15/2024 CBC WITH DIFFE RENTI AL/PL ATELE T RBC 4.44 M/mm3 4.20-5 .40 normal Not Available [address], [address], 12/15/2024 15:23:00 12/15/19 25 12/15/2024 CBC WITH DIFFE RENTI AL/PL ATELE T hemoglobin 13.2 gm/dL 11.7-1 5.5 normal Not Available [address], [address], 12/15/2024 15:23:00 12/15/19 25 12/15/2024 CBC WITH DIFFE RENTI AL/PL ATELE T hematocrit 40.6 % 35.7-4 5.8 normal Not Available [address], [address], 12/15/2024 15:23:00 12/15/19 25 12/15/2024 CBC WITH DIFFE RENTI AL/PL ATELE T MCV 91.4 fL 80.0-1 00.0 normal Not Available [address], [address], 12/15/2024 15:23:00 12/15/19 25 12/15/2024 CBC WITH DIFFE RENTI AL/PL ATELE T MCH 29.7 pg 27.0-3 4.0 normal Not Available [address], [address], 12/15/2024 15:23:00 12/15/19 25 12/15/2024 CBC WITH DIFFE RENTI AL/PL ATELE T MCHC 32.5 g/dL 33.0-3 7.0 below low normal Not Available [address], [address], 12/15/2024 15:23:00 12/15/19 25 12/15/2024 CBC WITH DIFFE RENTI AL/PL ATELE T RDW 45.2 fL <47.0 Not Available [address], [address], 12/15/2024 15:23:00 12/15/19 25 12/15/2024 CBC WITH DIFFE RENTI AL/PL ATELE T platelets 393 K/mm3 150-46 0 normal Not Available [address], [address], 12/15/2024 15:23:00 12/15/19 25 12/15/2024 CBC WITH DIFFE RENTI AL/PL ATELE T neutrophils 65.9 % 44-76 normal Not Available [address], [address], 12/15/2024 15:23:00 12/15/19 25 12/15/2024 CBC WITH DIFFE RENTI AL/PL ATELE T lymphs 21.8 % 15-43 normal Not Available [address], [address], 12/15/2024 15:23:00 12/15/19 25 12/15/2024 CBC WITH DIFFE RENTI AL/PL ATELE T monocytes 8.3 % 4.5-10 .5 normal Not Available [address], [address], 12/15/2024 15:23:00 12/15/19 25 12/15/2024 CBC WITH DIFFE RENTI AL/PL ATELE T eos 2.4 % 0-6 normal Not Available [address], [address], 12/15/2024 15:23:00 12/15/19 25 12/15/2024 CBC WITH DIFFE RENTI AL/PL ATELE T basos 0.8 % 0-2 normal Not Available [address], [address], 12/15/2024 15:23:00 12/15/19 25 12/15/2024 CBC WITH DIFFE RENTI AL/PL ATELE T neutrophils (absolute) 4.2 K/mm3 1.3-7. 0 normal Not Available [address], [address], 12/15/2024 15:23:00 12/15/19 25 12/15/2024 CBC WITH DIFFE RENTI AL/PL ATELE T lymphs (absolute) 1.4 K/mm3 0.8-3. 1 normal Not Available [address], [address], 12/15/2024 15:23:00 12/15/19 25 12/15/2024 CBC WITH DIFFE RENTI AL/PL ATELE T monocytes(ab solute) 0.5 K/mm3 0.4-0. 9 normal Not Available [address], [address], 12/15/2024 15:23:00 12/15/19 25 12/15/2024 CBC WITH DIFFE RENTI AL/PL ATELE T eos (absolute) 0.2 K/mm3 0.0-0. 4 normal Not Available [address], [address], 12/15/2024 15:23:00 12/15/19 25 12/15/2024 CBC WITH DIFFE RENTI AL/PL ATELE T baso (absolute) 0.1 K/mm3 0.0-0. 1 normal Not Available [address], [address], 12/15/2024 15:23:00 12/15/19 25 12/15/2024 CBC WITH DIFFE RENTI AL/PL ATELE T immature granulocytes 0.8 % Not Available [address], [address], 12/15/2024 15:23:00 12/15/19 25 12/15/2024 CBC WITH DIFFE RENTI AL/PL ATELE T immature grans (abs) 0.1 K/mm3 Not Available [address], [address], 12/15/2024 15:23:00 12/15/19 25 12/15/2024 CBC WITH DIFFE RENTI AL/PL ATELE T NRBC 0.0 #/100 _WBC' s Not Available [address], [address], 12/15/2024 15:23:00 12/15/19 25 12/15/2024 CBC WITH DIFFE RENTI AL/PL ATELE T hematology comments: Commen t AUTOM ATED DIFFE RENTI AL MPV 9.3 FL 9.4-1 2.4 L ABS. NRBC 0.0 K/MM3 N Not Available [address], [address], 12/15/2024 15:23:00 12/15/19 25 12/15/2024 SEDIM ENTAT ION RATE- WESTE RGREN sedimentatio n rate-westerg trae 17 mm/HR 0-20 normal Not Available [address], [address], 12/15/2024 15:23:01 12/15/19 25 12/15/2024 C-PEYMAN CTIVE PROTE IN, QUANT C-reactive protein, quant 4.2 mg/dL 0-0.5 above high normal Not Available [facility] [address], [place], [address], 12/15/2024 15:23:03 12/04/19 25 12/04/2024 XR, knee, 3 view [email or web address] ?Encry pted=s hAaTro YD8dLq bEUv6g %2BXZw aYqtaq 0bqfl% 2Fg9IQ a4ajBk vP9nXo QUaueC m3YtLR FvZlgJ JJ8mAn HZtai3 4l2374 AC0Kqb HyMUqW gKiQtr MwF INTERFACE [facility] [address], [place], [address], 12/04/2024 12:07:27 12/04/19 25 12/04/2024 XR, knee, 3 view [email or web address] ?Encry pted=s hAaTro YD8dLq bEUv6g %2BXZw aYqtaq 0bqfl% 2Fg9IQ a4ajBk vP9nXo QUaueC m3YtLR FvZlgJ JJ8mAn HZtai3 7t6689 AC0Kqb HyMUqW gKiQtr MwF INTERFACE [facility] [address], [place], [address], 12/04/2024 12:07:29 04/13/20 25 04/13/2025 XR, knee, 3 view [email or web address] ?Encry pted=s hAaTro YD8dLq bEUv6g %2BXZw aYqtaq 0bqfl% 2Fg9IQ a4ajBk vP9nXo QUaueC m3YtLR FvZlgJ JJ8mAn HZtai3 0x1228 AC0Kla HyCV6O hKiQtr MwF INTERFACE [facility] [address], [place], [address], 04/13/2025 14:49:58 04/13/20 25 04/13/2025 XR, knee, 3 view [email or web address] ?Encry pted=s hAaTro YD8dLq bEUv6g %2BXZw aYqtaq 0bqfl% 2Fg9IQ a4ajBk vP9nXo QUaueC m3YtLR FvZlgJ JJ8mAn HZtai3 7f1701 AC0Kla HyCV6O hKiQtr MwF INTERFACE [facility] [address] [address], [place], [address], 04/13/2025 14:50:00 Result Notes Documentation Provider Name and Address Organization Details Recorded Time Xr, Knee, 3 View : [email or web address] Encrypted=hlMlQauUQ0qJbeD Uv6g%3PYKqmCetcb3qbkn%2Fg 3KLg3yeVmaW4pMhGRywfAx1Wq YZHqDgqDXQ6hIqDVvkp30v404 6RR7GlvWyGVgTlXiRjhXjP Not Available [facility] 12/04/2024 12:07: 28 Xr, Knee, 3 View : [email or web address] Encrypted=fyCkRmmVD1mCykQ Uv6g%8NNOtjSrqec2fccr%2Fg 9SDf5szJlrL1lLhKHzniUl5Dk SBOkNqvWFZ9pYnOZujl53x864 6UK0CnjDuHJeCsXjLlnTkT Not Available [facility] 12/04/2024 12:07: 30 Xr, Knee, 3 View : [email or web address] Encrypted=hsJoDhfXP0fNvkW Uv6g%9BPIynOtzyj3fmpg%2Fg 5CPm8ryPrxK2wNuUIewuUi1Sq VZHlYazUHK9wMgOCycd43h986 7RE7NlgUtXU8FcIjCjbTlH Not Available [facility] 04/13/2025 14:49: 59 Xr, Knee, 3 View : [email or web address] Encrypted=jhWrBhsQB3pSfdN Uv6g%5EHEysRjaho9lqch%2Fg 8UQv3mbHddQ5gVsNTuxoGs3Lx NXOyWofQFS5kIqPKruj65z294 1AF4FzlBmDS0QjRnWtsDqB Not Available [facility] 04/13/2025 14:50: 00 Problems Name Problem SNOMED Code Status Onset Date Resolution Date Notes Provider Name and Address Organization Details Recorded Time Pain of left knee joint 4401998336091 07 Active 2023 KAYLIA L'HEUREUX [facility] 4 14:43:58 Osteoarthr itis of left knee joint 3552935139433 09 Active 2023 Cesar Burciaga MD [address], [place], [address] , [facility] 4 12:43:48 History of total knee arthroplas ty 7912738299832 Active 2024 Cesar Burciaga MD [address], [place], [address] , [facility] 5 13:55:33 Problem Notes None recorded. Procedures Surgical History Date Name Laterality Status Provider Name and Address Organization Details Recorded Time 5 Knee Surgery completed KAYLIA L'HEUREUX [facility] 04/13/2025 14:39:08 5 Orthopedic Surgery completed KAYLIA L'HEUREUX [facility] 04/13/2025 14:39:08 Imaging Results None recorded. Procedure Notes None recorded. Medical Equipment None Reported. Allergies Allergen ID Allergen Name Allergen Category Reaction Reaction Severity Criticality Documentation Date Start Date Code Code System Note Provider Name and Address Organization Details Recorded Time 976976 oxycodone medicatio n Not available Not available Not available 12/30/2024 7804 RxNorm SHOSHANA SANDRITA polk [place] [facility] 13:34:45 59125 Product containin g penicilli n (product) medicatio n Not available Not available Not available 01/07/20242021 96400 8001 SNOMED Not Available [facility] 12:09:02 Medications Name Sig Start Date [...] Available Not Available Not Available nystatin Nystatin 279720NQZ T/ML Suspensio n 08/25 completed Statu s: [...] Updated DateTime 11/13/2024 159.39 cm 32.7 kg/m2 93823.4 g DIDIER Velasquez [facility] 11/13/2024 10:28:10 Date Recorded Body height Body mass index (BMI) Body weight Provider Name and Address Organization Details Last Updated DateTime 12/04/2024 159.39 cm 32.7 kg/m2 89851.4 g Ifeoma Zarco PA-C [address] [facility] [address], [place], [address], [place] [facility] 12/04/2024 11:56:06 Date Recorded Body height Body mass index (BMI) Body weight Provider Name and Address Organization Details Last Updated DateTime 12/15/2024 159.39 cm 32.7 kg/m2 19784.4 g Hal Godfrey [facility] 12/15/2024 08:57:58 Date Recorded Body height Body mass index (BMI) Body weight Provider Name and Address Organization Details Last Updated DateTime 12/30/2024 159.39 cm 32.7 kg/m2 74032.4 g SHOSHANA REMY [facility] 12/30/2024 13:31:25 Date Recorded Body height Body mass index (BMI) Body weight Provider Name and Address Organization Details Last Updated DateTime 04/13/2025 159.39 cm 32.7 kg/m2 95575.4 g NOREEN L'ASHLYNEUX [facility] 04/13/2025 14:39:17 Social History Question Answer Notes LastModified by TempMine Details LastModified Time Tobacco Smoking Status Never Smoker NOREEN L'HEUREUX [facility] 08/25/2024 14:43:38 What Is Your Relationship Status? Information not available 08/25/2024 Sex: Unknown Functional Status Question Answer Note LastModified by TempMine Details LastModified Time Do you use any illicit or recreational drugs? No Information not available 08/25/2024 Do you or have you ever used any other forms of tobacco or nicotine? No Information not available 08/25/2024 What is your level of alcohol consumption? None Information not available 08/25/2024 Mental Status None recorded. Family History Nothing Reported. Medical History Condition Response Allergies/Hayfever N Coronary Artery Disease N Breathing or lung disorders N Anxiety/Depression N Emphysema N Nerve Disorders N Thyroid Problems N COPD N Pacemaker N Kidney/Bladder Problems N Anemia N Vascular Disease N Heart Trouble N Heart Attack (NC) N Gastrointestinal Disease N Cholesterol N Diabetes N Autoimmune disease N Inflammatory Joint disease N Bleeding Disorder N Orthotics N Seizures/Epilepsy N Arthritis N Blood Clot N AIDS/HIV N Congestive Heart Failure (CHF) N Acid Reflux (GERD) N Cancer N Stroke N Asthma N Circulation Problems N Peripheral Vascular Disease N Sleep Apnea N Hepatitis N Heart Disease N Rheumatoid Arthritis N Pulmonary Embolism N Arrhythmia N Headaches N Fibromyalgia N Hypertension N Osteoporosis N Gynecological HistoryNo gynecological history recorded. Obstetrics History GPAL:G 0 P 0 0 0 0 Past Encounters Encounter ID Performer Location Encounter Start Date Encounter Closed Date Diagnosis/Indication Diagnosis SNOMED-CT Code Diagnosis ICD10 Code Diagnosis IMO Codes Diagnosis Note [id number] Vinita Arias PA-C [facility] Clinical [address] [facility] [place], [place] [address] 08/25/2024 14:36:13 09/17/2024 12:20:24 Osteoarthritis of left knee joint 3040177102 04870 M17.12 [id number] Reviewed patient's imaging and exam findings in [...] later. Pain of le ft knee joint 6958800245 05489 M25.562 [id number] MD Luba Mccabe [address] [place] [address] 10/21/2024 11:08:30 11/14/2024 08:41:09 Osteoarthritis of left knee joint 9186167594 11429 M17.12 [id number] Neetu Dennis, REGULATORY AFFAIRS COORDINATOR [facility] [address] [place] [address] 11/13/2024 10:20:44 11/25/2024 03:57:53 Osteoarthritis of left knee joint 3085925307 72591 M17.12 9463957 [id number] Ifeoma Zarco PA-C [facility] [place] [address] [place] [address] 12/04/2024 11:26:20 12/15/2024 11:18:55 History of left total knee replacement 0081884446 552740 Z96.652 10443677 Postoperative visit 1835 52803 Z48.89 44752716 [id number] ZENIA Westfall [address] [place] [address] 12/15/2024 08:53:56 12/31/2024 12:36:46 History of total knee arthroplasty 5897451047 105 Z96.2 71799011 Patient appears to have superficia l suture [...] patient's case with Dr. Burciaga as well. [id number] MD UMER Mccabe [address] [place] [address] 12/30/2024 13:27:29 01/15/2025 10:03:07 History of total knee arthroplasty 8634784852 105 [facility] 66339087 [id number] ZENIA Mathews 2nd [facility] [address] [place] [address] 04/13/2025 14:29:05 04/28/2025 13:52:28 History of left total knee replacement 2767864839 090180 [facility] 18897720 Health Concerns Section Related Observation LastModified by Organization Detai ls LastModified Time None Recorded Concern Status LastModified by Organization Details LastModified Time None Recorded Advance Directives Directive None Recorded Payers Insurance Date Sequence Insurance Name Policy Number Policy Urbano Covered Member ID Urbano Member ID Guarantor Name 08/25/2024 1 [facility] PUBLIC PLANS [facility] TYPE I (HMO) [id number] Barbara Edward [id number] Barbara Edward 04/28/2025 1 [facility] (MEDICAID HMO) [id number] Barbara Edward [id number] Barbara Edward Notes Date Note Type Note [...] raise. X-rays ordered, obtained and reviewed at [facility] today include 3 views of the left [...] any issues. All questions have been answered. [employer] speech recognition school child care attendant software was used to create portions of this document. An attempt at proofreading has been made to minimize errors. Please call for corrections. Ifeoma Zarco PA-C [address] [place] [address] Suite [facility], [place], [address], [facility] 12/04/2024 21:41:56 12/15/2024 text/html [...] other systemic symptoms. Vinita Arias PA-C [address], [place], [address], [facility] 12/15/2024 09:29:31 12/30/2024 text/html ROS as noted [...] patient s chart. Cesar Burciaga MD [address] [facility] [address], [place], [address], [facility] 12/30/2024 13:55:46 OBGyn Episode No OBEpisode recorded.
--- OUTSIDE RECORDS SUMMARY | 2025-09-18 21:24 | XMS_ITS | Encounter Summary ---
Author Organization [facility] Address [address] [facility] [address] [place] [address] Phone Care Team Providers Care Facilities Operator Name Role Phone Kimberley Nicholson MD Primary Care Provider + [phone] Arnol Blair DO Primary Care Provider + [phone] Reason for Referral * MRI/CAT Scan - Closed Specialty Diagnoses / Procedures Referred By Ani harmon Referred To Contact Radiology Diagnoses Lumbar radiculopathy Pain in the coccyx Procedures MRI Lumbar Spine CHG MRI, LUMBAR SPINE Yan Ren DO Phone: tel: fax: [email or web address] om Referral ID Status Reason Start Date Expiration Date Visits Re quested Visits Authorized [id number] Closed 03/06/2022 09/02/2022 1 1 Encounter Details Date Type Department Care Team (Latest Contact Info) Description 03/14/2022 Transcribe Orders Virtual Department [address] [place], [place] [id number] Kimberley Nicholson MD [address] [place], [place] [id number] [email or web address] Lumbar radiculopathy (Primary Dx); Pain in the [...] coccyx documented in this encounter Care Teams Facilities Operator Relationship Specialty Start Date End Date Kimberley Nicholson MD [address] [place] [address] [email or web address] PCP - General Family Medicine 05/22/19 Arnol Blair DO [address] [address] PCP - General Family Medicine 05/10/23 documented as of this encounter Additional Source Comments The information contained in this document represents components of the legal health record. It is not the complete legal health record.[facility]
--- OUTSIDE RECORDS SUMMARY | 2025-09-18 21:24 | XMS_ITS | Encounter Summary ---
Author Organization [facility] Address [address] [facility] [address] [place] [address] Phone Care Team Providers Care Dental Sales Representative Name Role Phone Dimitris Lipscomb MD Unavailable Irena Ernst PA-C Unavailable Makeda Xavier MD Unavailable Ruby Carter MD Unavailable Gutierrez Patterson MD Unavailable Ruby Carter MD Primary Care Provider Kimberley Nicholson MD Primary Care Provider [phone] Arnol Blair DO Primary Care Provider [phone] Reason for Referral * Physical Therapy (Routine) - Closed Specialty Diagnoses / Procedures Referred By Ani harmon Referred To Contact Physical Therapy Diagnoses Encounter for rehabilitation System, Provider Not In, [facility] [id number] [place] [address] Phone: tel: Referral ID Status Reason Start Date Expiration Date Visits Re quested Visits Authorized [id number] Closed 07/01/2018 07/01/2019 10 10 Encounter Details Date Type Department Care Team (Latest Contact Info) Description 07/03/2018 Transcribe Orders [facility] [address] [place] [address] Ruby Carter MD [address] [facility] [address] [place] [phone] [email or web address] Encounter for rehabilitation (Primary Dx) Social History [...] Diagnoses Orde r Schedule Ambulatory referral to [facility] Physical Therapy Outpatient Referral Routine Encounter for rehabilitation Ordered: 07/03/2018 documented as of this encounter Visit Diagnoses Diagnosis Encounter for rehabilitation- Primary documented in this encounter Care Teams Dental Sales Representative Relationship Specialty Start Date End Date Ruby Carter MD [address] [facility] [address] [place] [phone] [email or web address] PCP - General 11/08/17 05/21/19 Kimberley Nich[facility] [place] [address] [email or web address] PCP - General Family Medicine 05/22/19 05/09/23 Arnol Blair DO [address] [address] PCP - General Family Medicine 05/10/23 Dimitris Lipscomb MD [address] [place] [address], [address] [place] [address] [email or web address] Historical LMR Provider 08/22/17 11/12/21 Irena Ernst PA-C 4 [facility] [place] [address] [email or web address] Historical LMR Provider 08/22/17 11/12/21 Makeda Xavier MD 4 [facility], [place] [address] [email or web address] Historical LMR Provider 08/22/17 Ruby Carter MD [address] [place] [address] [address] [place] [address] [email or web address] Historical LMR Provider 08/22/17 2 Gutierrez Patterson MD [address] [place] [address] Historical LMR Provider 08/22/17 2 documented as of this encounter Additional Source Comments The information contained in this document represents components of the legal health record. It is not the complete legal health record.[facility]
--- OUTSIDE RECORDS SUMMARY | 2025-09-18 21:24 | XMS_ITS | Clinical Summary ---
Author Organization [facility] Address [address] [place] [address] Care Team Providers Care Nail Sticker Name Role Phone Unknown, Primary Care Provider [...] age to complete this topic Care Teams Nail Sticker Relationship Specialty Start Date End Date Unknown, PCP - General 05/18/23
== END 2025-09-18 16:08 | disposition home or self-care (01) ==
LOC: HO.HNS 14:24
PROVIDERS: PCP Family Medicine; Visit Provider Physician Assistant
DX: G95.0 Syringomyelia and syringobulbia (principal); M50.30 Other cervical disc degeneration, unspecified cervical region; M51.369 Other intervertebral disc degeneration, lumbar region without mention of lumbar back pain or lower extremity pain
CPT/HCPCS: 99213

== ENCOUNTER → 2025-09-18 14:23 | Outpatient (BNVA) | payer OTHER, SELFPAY | PROVIDERS: PCP Family Medicine; Visit Provider Physician Assistant | DX: G95.0 Syringomyelia and syringobulbia (principal); M50.30 Other cervical disc degeneration, unspecified cervical region; M51.369 Other intervertebral disc degeneration, lumbar region without mention of lumbar back pain or lower extremity pain | CPT/HCPCS: 99212 ==